=== PATIENT | male | born 1940 | race Caucasian/White ===

== ENCOUNTER 2018-01-06 13:24 | Outpatient (CLI) | payer MEDICARE, OTHER ==
--- NOTE | 2018-01-06 16:08 | XRAY Report ---
TWO VIEW RIGHT HUMERUS: 01/06/2018 CLINICAL INDICATION: Lateral epicondylitis. FINDINGS: Frontal and lateral views of the right humerus demonstrate no evidence of fracture. No radiopaque foreign body is seen in the soft tissues. IMPRESSION: NORMAL RIGHT HUMERUS. TD: 01/06/2018 16:07
--- NOTE | 2018-01-06 16:09 | XRAY Report ---
THREE VIEW RIGHT ELBOW: 01/06/2018 CLINICAL INDICATION: Lateral epicondylitis. FINDINGS: AP, lateral, oblique views of the right elbow demonstrate no evidence of fracture or dislocation. No effusion is evident. Mild degenerative changes are noted. No radiopaque foreign body is seen in the soft tissues. IMPRESSION: MILD OSTEOARTHRITIS. NO EVIDENCE OF FRACTURE. TD: 01/06/2018 16:08
== END 2018-01-06 13:25 | disposition home or self-care (01) ==
LOC: DI.N 13:24
PROVIDERS: ATTEND Internal Medicine
DX: M77.11 Lateral epicondylitis, right elbow (principal); M19.021 Primary osteoarthritis, right elbow

== ENCOUNTER 2018-09-28 21:27 | Outpatient (CLI) | payer MEDICARE, OTHER | END 2018-09-28 21:28 | disposition critical access hospital (66) | LOC: EMS 21:27 | PROVIDERS: ATTEND Surgery | DX: R10.9 Unspecified abdominal pain (principal) | CPT/HCPCS: A0425; A0427 ==

== ENCOUNTER 2018-09-28 21:52 | Emergency (ER) | payer MEDICARE, OTHER ==
[2018-09-28] MEDS ORDERED: ONDANSETRON 4 MG/2 ML VIAL IVP STA (22:07)
[2018-09-28] MEDS ORDERED: SODIUM CHLORIDE 0.9% 1,000 ML IV ONE (22:07)
--- NOTE | 2018-09-28 22:13 | ED Physician Documentation ---
PD HPI ABD PAIN - Stated complaint Stated Complaint: ABD PAIN - Chief complaint Chief Complaint: Abd Pain - History obtained from History obtained from: Patient - History of Present Illness Timing - onset: Today Timing - details: Gradual onset Severity Comments: moderate Quality: Cramping, Aching, Sharp Location: Periumbilical Radiation: Other (none) Worsened by: Palpation. No: Eating, Moving Associated symptoms: Nausea. No: Fever, Hematemesis, Diarrhea, Dizzy Similar symptoms before: Other (Similar to prior episodes in the past) Review of Systems Constitutional: denies: Fever, Chills Eyes: denies: Discharge Ears: denies: Ear pain Throat: denies: Sore throat Cardiac: denies: Chest pain / pressure Respiratory: denies: Dyspnea GI: reports: Abdominal Pain, Nausea : denies: Dysuria Skin: denies: Rash Musculoskeletal: denies: Neck pain Neurologic: denies: Generalized weakness PD PAST MEDICAL HISTORY - Past Medical History Cardiovascular: Hypertension, High cholesterol Respiratory: Emphysema Endocrine/Autoimmune: None GI: None : Kidney stones HEENT: Glaucoma, Chronic hearing loss Psych: Panic attacks Musculoskeletal: Osteoarthritis Derm: None - Past Surgical History Past Surgical History: Yes General: Colonoscopy - Present Medications Home Medications: Ambulatory Orders Medication Instructions Recorded Confirmed Aspirin [Aspir 81] 81 mg PO DAILY 11/24/14 09/28/18 Latanoprost 0.005% Ophth Drops 1 drops OPTH QPM 11/24/14 09/28/18 [Xalatan Ophth Drops] Lisinopril 15 mg PO DAILY 11/24/14 09/28/18 Naproxen Sodium [Aleve] 220 mg PO DAILY 11/24/14 09/28/18 Simvastatin 20 mg PO DAILY 11/24/14 09/28/18 Brimonidine Tartrate/Timolol 1 drop LEFTEYE DAILY 10/06/15 09/28/18 [Combigan Eye Drops] oxyCODONE/ACET 5/325 [Percocet 5 1 each PO Q4-6H PRN #15 tablet 10/06/15 09/28/18 mg/325 mg] - Allergies Allergies/Adverse Reactions: Allergies Allergy/AdvReac Type Severity Reaction Status Date / Time codeine AdvReac Itching Verified 09/28/18 21:58 - Social History Does the pt smoke?: No Smoking Status: Never smoker Does the pt drink ETOH?: Yes ETOH Use: Beer, Liquor Does the pt have substance abuse?: No PD ED PE NORMAL - General General: Alert and oriented X 3, No acute distress - HEENT HEENT: Atraumatic, PERRL, EOMI, Ears normal - Neck Neck: Supple, no meningeal sign - Cardiac Cardiac: RRR, Strong equal pulses - Respiratory Respiratory: No respiratory distress, Clear bilaterally - Abdomen Abdomen: Soft, Non distended. No: Non tender (Mid abdominal pain, no rebound or peritoneal signs) - Back Back: No CVA TTP - Derm Derm: Normal color - Extremities Extremities: No deformity, No edema - Neuro Neuro: Alert and oriented X 3, Normal speech - Psych Psych: Normal affect Results - Vitals Vitals: Vital Signs - 24 hr 09/28/18 09/28/18 21:56 23:49 Temperature 36.0 C L Heart Rate 74 91 Respiratory 18 15 Rate Blood Pressure 159/89 H 158/87 H O2 Saturation 98 95 Oxygen O2 Source Room air - Labs Labs: Laboratory Tests 09/28/18 09/28/18 09/28/18 22:25 22:25 23:50 WBC 7.3 RBC 4.51 L Hgb 14.2 Hct 42.8 MCV 94.9 H MCH 31.5 H MCHC 33.2 RDW 12.9 Plt Count 177 MPV 7.5 Neut # (Auto) 5.6 Lymph # (Auto) 1.1 L [place] # (Auto) 0.4 Eos # (Auto) 0.1 Baso # (Auto) 0.0 Absolute Nucleated RBC 0.00 Nucleated RBC % 0.0 Sodium 138 Potassium 4.0 Chloride 107 Carbon Dioxide 23 Anion Gap 8.0 BUN 28 H Creatinine 1.1 Estimated GFR (MDRD) 65 L Glucose 142 H Calcium 9.3 Total Bilirubin 0.7 AST 21 ALT 18 Alkaline Phosphatase 78 Total Protein 7.0 Albumin 3.8 Globulin 3.2 Albumin/Globulin Ratio 1.2 Lipase 30 Urine Color YELLOW Urine Clarity CLEAR Urine pH 7.5 Ur Specific [place] 1.020 Urine Protein TRACE Urine Glucose (UA) NEGATIVE Urine Ketones NEGATIVE Urine Occult Blood NEGATIVE Urine Nitrite NEGATIVE Urine Bilirubin NEGATIVE Urine Urobilinogen 0.2 (NORMAL) Ur Leukocyte Esterase NEGATIVE Ur Microscopic Review NOT INDICATED Urine Culture Comments NOT INDICATED - Rads (name of study) CT abd/pelvis Radiology: Final report received, See rad report (1. Right middle lobe 9 mm pulmonary nodule, unchanged from 2016 most consistent with benign. Mild centrilobular emphysema. 2. Cholelithiasis. 3. Normal appendix. Left-sided colonic diverticulosis without evidence for acute diverticulitis. No acute findings are seen. . ) PD MEDICAL DECISION MAKING - ED course ED course: Reevaluation the patient resting comfortably and his symptoms appear to be under control. The patient has no acute findings on his workup that would necessitate admission to the hospital, acute surgical consultation or transfer to another Medical Center. Presently, the patient appears appropriate for discharge and ongoing outpatient management. I discussed with him the findings on CT scan. I discussed warning signs and recommended returning for any worsening or any concerns. Departure - Departure Disposition: 01 Home, Self Care Clinical Impression: Pulmonary nodule Abdominal pain Qualifiers: Abdominal location: generalized Qualified Code(s): R10.84 - Generalized abdominal pain Cholelithiasis Qualifiers: Cholelithiasis location: gallbladder Cholecystitis presence: without cholecystitis Biliary obstruction: without biliary obstruction Qualified Code(s): K80.20 - Calculus of gallbladder without cholecystitis without obstruction Condition: Good Instructions: Abdominal Pain Follow-Up: Gayle Munoz MD [Primary Care Provider] - Within 1 week (Please ask your primary care about an outpatient ultrasound of your gallbladder and possibly referral to surgery if you develop symptoms of biliary colic) Comments: Please return to the emergency department for any worsening or any concerns
[2018-09-28 22:33] LABS: BASOPHILS % (AUTO) 0.6 %; EOSINOPHILS # (AUTO) 0.1 10^3/uL (0.0-0.7); EOSINOPHILS % (AUTO) 1.3 %; HGB - HEMOGLOBIN 14.2 g/dL (14.0-18.0); LYMPHOCYTES # (AUTO) 1.1 10^3/uL (1.5-3.5); LYMPHOCYTES % (AUTO) 15.5 %; MEAN CORPUSCULAR HEMOGLOBIN 31.5 pg (27.0-31.0); MEAN CORPUSCULAR HGB CONC 33.2 g/dL (32.0-36.0); MEAN CORPUSCULAR VOLUME 94.9 fL (80.0-94.0); MEAN PLATELET VOLUME 7.5 fL (7.4-11.4); MONOCYTES # (AUTO) 0.4 10^3/uL (0.0-1.0); NEUTROPHILS # (AUTO) 5.6 10^3/uL (1.5-6.6); NEUTROPHILS % (AUTO) 76.6 %; PLT - PLATELET COUNT 177 10^3/uL (130-450); RED BLOOD COUNT 4.51 10^6/uL (4.70-6.10); RED CELL DISTRIBUTION WIDTH 12.9 % (12.0-15.0); WHITE BLOOD COUNT 7.3 x10^3/uL (4.8-10.8)
[2018-09-28 22:50] LABS: ALBUMIN 3.8 g/dL (3.2-5.5); ALBUMIN/GLOBULIN RATIO 1.2 (1.0-2.2); BILIRUBIN,TOTAL 0.7 mg/dL (0.2-1.0); CALCIUM 9.3 mg/dL (8.5-10.3); CREATININE 1.1 mg/dL (0.6-1.2)
[2018-09-28] MEDS ORDERED: IOVERSOL 320 100 ML VIAL IVP ONE ×2 (22:55→23:18)
[2018-09-28 23:52] LABS: BILIRUBIN,URINE NEGATIVE (NEGATIVE); GLUCOSE, URINE (UA) NEGATIVE (NEGATIVE); KETONES,URINE (UA) NEGATIVE (NEGATIVE); LEUKOCYTE ESTERASE, URINE NEGATIVE (NEGATIVE); NITRITE,URINE NEGATIVE (NEGATIVE); OCCULT BLOOD,URINE NEGATIVE (NEGATIVE); PH,URINE 7.5 PH (5.0-7.5); PROTEIN,URINE TRACE mg/dL (NEGATIVE); UROBILINOGEN,URINE 0.2 (NORMAL) E.U./dL (NORMAL)
[2018-09-28 23:53] LABS: CLARITY,URINE CLEAR (CLEAR)
--- NOTE | 2018-09-29 00:05 | CT Report ---
Reason: abdominal pain Procedure Date: 09/28/2018 Accession Number: [id number] / [id number] Procedure: CT - Abdomen/Pelvis W/ CPT Code: FULL RESULT: EXAM: CT ABDOMEN AND PELVIS EXAM DATE: 09/28/2018 11:30 PM. CLINICAL HISTORY: Abdominal pain. COMPARISONS: ABDOMEN/PELVIS W/O 10/06/2015 3:39 AM. TECHNIQUE: Routine helical CT imaging was performed through the abdomen and pelvis. IV contrast: OPTIRAY 320 100mL. Enteric contrast: No. Reconstructions: Coronal and sagittal. In accordance with CT protocol optimization, one or more of the following dose reduction techniques were utilized for this exam: automated exposure control, adjustment of mA and/or KV based on patient size, or use of iterative reconstructive technique. FINDINGS: Lung Bases: Right middle lobe 9 mm pulmonary nodule, unchanged from 2016 most consistent with benign. Mild centrilobular emphysema. Mild bibasilar atelectasis or scarring. Coronary artery calcification. Liver: Normal. No masses. Gallbladder/Bile Ducts: Small calcified gallstones. No bile duct dilatation. Spleen: Normal. Pancreas: Normal. Adrenal Glands: Normal. Kidneys: Right lateral exophytic renal cyst measures 2.9 cm, mildly decreased. Right anterior mid renal cyst measuring 1.9 cm. Right posterior mid small calcification at the parenchyma. No hydronephrosis. Peritoneal Cavity/Bowel: Normal appendix. Sigmoid anastomosis. Mild descending and moderate sigmoid colon diverticulosis. Ventral hernia repair. No evidence for bowel obstruction. No acute bowel findings are seen. No free fluid or free air. Pelvic Organs: The bladder is decompressed. Remaining pelvic organs appear unremarkable. Vasculature: No acute findings. Bones: No acute bone findings. IMPRESSION: 1. Right middle lobe 9 mm pulmonary nodule, unchanged from 2016 most consistent with benign. Mild centrilobular emphysema. 2. Cholelithiasis. 3. Normal appendix. Left-sided colonic diverticulosis without evidence for acute diverticulitis. No acute findings are seen. RADIA
[2018-09-29 00:47] VITALS: BP 164/101
== END 2018-09-29 00:45 | disposition home or self-care (01) ==
LOC: EDUNIT# → ED 21:52
DX: R91.1 Solitary pulmonary nodule (principal); R10.84 Generalized abdominal pain; K80.20 Calculus of gallbladder without cholecystitis without obstruction; I10 Essential (primary) hypertension; E78.00 Pure hypercholesterolemia, unspecified; Z79.82 Long term (current) use of aspirin
CPT/HCPCS: 36415; 74177; 80053; 81003; 83690; 85025; 96361; 96374; 99283; Q9967; 81001; 87086

== ENCOUNTER 2019-07-01 19:20 | Outpatient (CLI) | payer MEDICARE, OTHER | END 2019-07-01 19:21 | disposition critical access hospital (66) | LOC: EMS 19:20 | PROVIDERS: ATTEND Surgery | DX: R10.9 Unspecified abdominal pain (principal) | CPT/HCPCS: A0425; A0429 ==

== ENCOUNTER 2019-07-01 19:44 | Emergency (ER) | payer MEDICARE, OTHER ==
[2019-07-01 20:23] LABS: BASOPHILS % (AUTO) 0.4 %; EOSINOPHILS # (AUTO) 0.1 10^3/uL (0.0-0.7); EOSINOPHILS % (AUTO) 1.2 %; HGB - HEMOGLOBIN 13.7 g/dL (14.0-18.0); LYMPHOCYTES # (AUTO) 1.1 10^3/uL (1.5-3.5); LYMPHOCYTES % (AUTO) 23.3 %; MEAN CORPUSCULAR HEMOGLOBIN 32.8 pg (27.0-31.0); MEAN CORPUSCULAR HGB CONC 33.9 g/dL (32.0-36.0); MEAN CORPUSCULAR VOLUME 96.7 fL (80.0-94.0); MEAN PLATELET VOLUME 9.1 fL (7.4-11.4); MONOCYTES # (AUTO) 0.5 10^3/uL (0.0-1.0); MONOCYTES % (AUTO) 10.5 %; NEUTROPHILS # (AUTO) 3.1 10^3/uL (1.5-6.6); PLT - PLATELET COUNT 158 10^3/uL (130-450); RED BLOOD COUNT 4.18 10^6/uL (4.70-6.10); RED CELL DISTRIBUTION WIDTH 12.5 % (12.0-15.0); WHITE BLOOD COUNT 4.9 x10^3/uL (4.8-10.8)
[2019-07-01 20:35] LABS: INR 1.2 (0.8-1.2)
[2019-07-01 20:44] LABS: ALBUMIN 3.8 g/dL (3.2-5.5); ALBUMIN/GLOBULIN RATIO 1.3 (1.0-2.2); CREATININE 0.9 mg/dL (0.6-1.2); TOTAL PROTEIN 6.8 g/dL (6.7-8.2)
--- NOTE | 2019-07-01 20:50 | ED Physician Documentation ---
PD HPI ABD PAIN - Stated complaint Stated Complaint: ABD PAIN WITH DISTENTION - Chief complaint Chief Complaint: Abd Pain - History obtained from History obtained from: Patient, Family - History of Present Illness Timing - onset: Enter time (1599), Today Timing - duration: Hours Timing - details: Abrupt onset, Now resolved Quality: Sharp, Pain Location: Epigastric Improved by: Other (gas) Associated symptoms: Constipation. No: Fever, Nausea, Vomiting, Hematemesis, Diarrhea, Melena, Hematochezia, Dysuria, Hematuria, Chest pain, Dizzy, Near syncope / syncope, Loss of appetite, Weight loss Similar symptoms before: No diagnosis, Work up / diagnostics (had CT with gallstones in September) Recently seen: Not recently seen - Additional information Additional information: 78-year-old male with a history of a colonic abscess status post colon resection 9 years ago and ventral hernia has developed episodes of abdominal pain bloating and gas that have resolved. He has had an episode similar to this back in September and this resolved. At that time he had CT scan showing gallstones. The patient has not had his gallbladder out.Today he had pain starting about 4:00 in the afternoon and this eventually worsened to where he felt like it was going to double him over and then on the way to the hospital his pain resolved. He is now comfortable. Review of Systems Constitutional: denies: Fever Eyes: denies: Decreased vision Ears: denies: Ear pain Nose: denies: Rhinorrhea / runny nose, Congestion Throat: denies: Sore throat Cardiac: denies: Chest pain / pressure Respiratory: denies: Dyspnea, Cough GI: reports: Abdominal Pain, Abdominal Swelling, Nausea. denies: Vomiting, Constipation, Diarrhea : denies: Dysuria, Frequency Skin: denies: Rash Musculoskeletal: denies: Neck pain Neurologic: denies: Generalized weakness, Focal weakness, Numbness PD PAST MEDICAL HISTORY - Past Medical History Past Medical History: Yes Cardiovascular: Hypertension, High cholesterol Respiratory: Emphysema Endocrine/Autoimmune: None GI: None : Kidney stones HEENT: Glaucoma, Chronic hearing loss Psych: Panic attacks Musculoskeletal: Osteoarthritis Derm: None - Past Surgical History Past Surgical History: Yes General: Colonoscopy - Present Medications Home Medications: Ambulatory Orders Medication Instructions Recorded Confirmed Aspirin [Aspir 81] 81 mg PO DAILY 11/24/14 09/28/18 Latanoprost 0.005% Ophth Drops 1 drops OPTH QPM 11/24/14 09/28/18 [Xalatan Ophth Drops] Lisinopril 15 mg PO DAILY 11/24/14 09/28/18 Naproxen Sodium [Aleve] 220 mg PO DAILY 11/24/14 09/28/18 Simvastatin 20 mg PO DAILY 11/24/14 09/28/18 Brimonidine Tartrate/Timolol 1 drop LEFTEYE DAILY 10/06/15 09/28/18 [Combigan Eye Drops] oxyCODONE/ACET 5/325 [Percocet 5 1 each PO Q4-6H PRN #15 tablet 10/06/15 09/28/18 mg/325 mg] - Allergies Allergies/Adverse Reactions: Allergies Allergy/AdvReac Type Severity Reaction Status Date / Time codeine AdvReac Itching Verified 07/01/19 19:50 - Social History Does the pt smoke?: No Smoking Status: Never smoker Does the pt drink ETOH?: Yes Does the pt have substance abuse?: No PD ED PE NORMAL - Vitals Vital signs reviewed: Yes (hypertensive) - General General: Alert and oriented X 3, No acute distress, Well developed/nourished - HEENT HEENT: Atraumatic, PERRL, EOMI, Other (dry mucous membranes) - Neck Neck: Supple, no meningeal sign, No bony TTP - Cardiac Cardiac: RRR, No murmur - Respiratory Respiratory: No respiratory distress, Clear bilaterally - Abdomen Abdomen: Normal bowel sounds, Soft, Non tender, Non distended, No organomegaly, Other (mild epigastric tenderness without garding or rebound) - Back Back: No CVA TTP, No spinal TTP - Derm Derm: Normal color, Warm and dry, No rash - Extremities Extremities: No deformity, No tenderness to palpate, Normal ROM s pain, No edema, No calf tenderness / cord - Neuro Neuro: Alert and oriented X 3, glass curvature gauger 2-12 intact, No motor deficit, Normal speech Eye Opening: Spontaneous Motor: Obeys Commands Verbal: Oriented GCS Score: 15 - Psych Psych: Normal mood, Normal affect Results - Vitals Vitals: Vital Signs - 24 hr 07/01/19 07/01/19 07/01/19 19:50 21:57 23:12 Temperature 36.5 C 37.2 C 36.5 C Heart Rate 61 78 68 Respiratory 16 12 20 Rate Blood Pressure 168/87 H 150/93 H 148/77 H O2 Saturation 97 96 96 Oxygen O2 Source Room air - Labs Labs: Laboratory Tests 07/01/19 07/01/19 07/01/19 20:20 20:20 20:20 WBC 4.9 RBC 4.18 L Hgb 13.7 L Hct 40.4 L MCV 96.7 H MCH 32.8 H MCHC 33.9 RDW 12.5 Plt Count 158 MPV 9.1 Neut # (Auto) 3.1 Lymph # (Auto) 1.1 L [place] # (Auto) 0.5 Eos # (Auto) 0.1 Baso # (Auto) 0.0 Absolute Nucleated RBC 0.00 Nucleated RBC % 0.0 PT 13.0 H INR 1.2 Sodium 141 Potassium 4.2 Chloride 109 Carbon Dioxide 25 Anion Gap 7.0 BUN 25 H Creatinine 0.9 Estimated GFR (MDRD) 82 L Glucose 107 H Lactic Acid Calcium 9.0 Total Bilirubin 2.0 H AST 613 H ALT 405 H Alkaline Phosphatase 123 H Total Protein 6.8 Albumin 3.8 Globulin 3.0 Albumin/Globulin Ratio 1.3 Lipase 30 07/01/19 20:20 WBC RBC Hgb Hct MCV MCH MCHC RDW Plt Count MPV Neut # (Auto) Lymph # (Auto) [place] # (Auto) Eos # (Auto) Baso # (Auto) Absolute Nucleated RBC Nucleated RBC % PT INR Sodium Potassium Chloride Carbon Dioxide Anion Gap BUN Creatinine Estimated GFR (MDRD) Glucose Lactic Acid 0.9 Calcium Total Bilirubin AST ALT Alkaline Phosphatase Total Protein Albumin Globulin Albumin/Globulin Ratio Lipase - Rads (name of study) CT ab/pel with Radiology: Prelim report reviewed (Impression: 1. Circumferential wall thickening of the gastric antrum. Correlate clinically for antral gastritis. 2 Colonic diverticulosis. No diverticulitis. 3 Gallstones. 4 Other chronic findings as detailed above.), EMP read indepedently, See rad report PD MEDICAL DECISION MAKING - ED course Complexity details: reviewed old records, reviewed results, re-evaluated patient, considered differential, d/w patient, d/w family, d/w service delivery consultant (Dr. Johnson surgery here will follow the patient with repeat labs on Saturday07-03-2019. Recommends he follow up in the ED for recurrance of pain . ) ED course: 78-year-old male with acute abdominal pain today that is resolved prior to coming to the emergency department has had episodes similar to this not as extensive over the past 10 months and he has had one episode in September that he was seen here in the emergency department for and had CT scanning of the abdomen done. On his presentation today he has had resolution prior to coming to the emergency department and has only minimal epigastric pain. A CT scan of the abdomen/pelvis was undertaken to further delineate the possibility of obstruction. The patient has had prior bowel obstruction. This study was fairly unremarkable with exception of some small stones in the gallbladder and no specific abnormality to the liver. His laboratory results indicated acute obstruction and the surgeon was contacted in the case. My thoughts on the patient presentation is that he had a common duct stone but is likely now passed and the expectation would be that his laboratory work showing elevated bilirubin AST ALT and alkaline phosphatase would return to normal. I suspect the patient needs to have his gallbladder taken out. I was able to contact the surgeon Dr. Ortega and discussed the case with her and she graciously agreed to see the patient in her office in 2 days time and obtain laboratory results prior to the visit. The expectation from both of us was that it was likely he has passed the stone. I was able to share this with the patient and have asked him to return to the emergency department should he have recurrence of his pain. In the emergency department the patient did have some residual epigastric pain and this was resolved with use of a GI cocktail. Departure - Departure Disposition: 01 Home, Self Care Clinical Impression: Cholelithiasis Qualifiers: Cholelithiasis location: gallbladder and bile duct Cholecystitis presence: without cholecystitis Biliary obstruction: with biliary obstruction Qualified Code(s): K80.71 - Calculus of gallbladder and bile duct without cholecystitis with obstruction Instructions: ED Gallstone W Biliary Colic Follow-Up: Gayle Munoz MD [Primary Care Provider] - Mark Johnson MD [Provider Admit Priv/Credential] - Comments: Today your laboratory studies indicate you have had some biliary obstruction. Our expectation is that these laboratory studies will return to normal and you will need to have your gallbladder out. If you have worsening of your pain return to the emergency department. Call Dr. Johnson's office tomorrow morning with the expectation that she will be able to see you on Saturday and you will need to have blood work done prior to the visit. Discharge Date/Time: 07/01/19 23:15
[2019-07-01] MEDS ORDERED: IOVERSOL 320 100 ML VIAL IVP ONE ×2 (21:05→21:19)
--- NOTE | 2019-07-01 21:45 | CT Report ---
Reason: gas, bloating and pain epigastric Procedure Date: 07/01/2019 Accession Number: [id number] / [id number] Procedure: CT - Abdomen/Pelvis W CPT Code: FULL RESULT: EXAM: CT ABDOMEN AND PELVIS EXAM DATE: 07/01/2019 09:11 PM. CLINICAL HISTORY: Gas, bloating and pain epigastric. COMPARISONS: ABDOMEN/PELVIS W/ 09/28/2018 11:08 PM ABDOMEN/PELVIS W/O 10/06/2015 3:39 AM. TECHNIQUE: Routine helical CT imaging was performed through the abdomen and pelvis. IV contrast: 100 cc Optiray 320. Enteric contrast: No. Reconstructions: Coronal and sagittal. In accordance with CT protocol optimization, one or more of the following dose reduction techniques were utilized for this exam: automated exposure control, adjustment of mA and/or KV based on patient size, or use of iterative reconstructive technique. FINDINGS: Imaged chest: Coronary artery disease and mild atherosclerosis of the thoracic aorta. Unchanged 9 mm pulmonary nodule within the right middle lobe, likely benign given a year stability. Unchanged enlarged intrapulmonary lymph node within the right major fissure. Again mild emphysema. Liver: Unremarkable. Gallbladder: Gallstones in gallbladder. No gallbladder wall thickening or pericholecystic fluid. Biliary: Unremarkable. Pancreas: Unremarkable. Spleen: Unremarkable. Adrenal glands: Unremarkable. Kidneys: Renal cortical scarring. The kidneys demonstrate a few scattered low-density foci, some of which represent cysts, others are too small to accurately characterize and indeterminate but statistically likely to represent tiny cysts. Urinary bladder: Unremarkable. Reproductive organs: Unremarkable. Bowel: Status post at least partial sigmoidectomy with colorectal anastomosis. Sigmoid and descending colonic diverticulosis without obvious evidence of diverticulitis. Stomach: Circumferential wall thickening of the gastric antrum. Appendix: Unremarkable. Miscellaneous: No free fluid. No extraluminal gas. Aorta: Moderate aortic atherosclerosis. Normal in caliber. Lymph nodes: No pathologically enlarged lymph nodes identified. Bones: No acute fracture. No suspicious osseous lesions. Sidewalls: Diastases of the rectus abdominis muscle status post hernia repair with mesh. IMPRESSION: 1. Circumferential wall thickening of the gastric antrum. Correlate clinically for antral gastritis. 2. Colonic diverticulosis. No diverticulitis. 3. Gallstones. 4. Other chronic findings detailed above. RAD[facility]
[2019-07-01] MEDS ORDERED: MAG HYDROX/AL HYDROX/SIMETH 30 ML UDC PO STA (22:06)
[2019-07-01] MEDS ORDERED: LIDOCAINE VISCOUS 2% 15 ML UDC MM STA (22:07)
[2019-07-01 23:12] VITALS: BP 148/77
== END 2019-07-01 23:15 | disposition home or self-care (01) ==
LOC: EDUNIT# → ED 19:44
DX: K80.71 Calculus of gallbladder and bile duct without cholecystitis with obstruction (principal); K57.30 Diverticulosis of large intestine without perforation or abscess without bleeding; Z87.19 Personal history of other diseases of the digestive system; Z90.49 Acquired absence of other specified parts of digestive tract; I10 Essential (primary) hypertension; Z79.82 Long term (current) use of aspirin
CPT/HCPCS: 36415; 74177; 80053; 83605; 83690; 85025; 85610; 99284; A9270; Q9967

== ENCOUNTER 2019-07-02 10:47 | Outpatient (CLI) | payer MEDICARE, OTHER ==
[2019-07-02 11:05] LABS: BASOPHILS % (AUTO) 0.5 %; HGB - HEMOGLOBIN 14.6 g/dL (14.0-18.0); LYMPHOCYTES # (AUTO) 0.9 10^3/uL (1.5-3.5); LYMPHOCYTES % (AUTO) 22.6 %; MEAN CORPUSCULAR HEMOGLOBIN 31.5 pg (27.0-31.0); MEAN CORPUSCULAR HGB CONC 32.9 g/dL (32.0-36.0); MEAN CORPUSCULAR VOLUME 95.9 fL (80.0-94.0); MEAN PLATELET VOLUME 9.5 fL (7.4-11.4); MONOCYTES # (AUTO) 0.4 10^3/uL (0.0-1.0); MONOCYTES % (AUTO) 9.8 %; NEUTROPHILS # (AUTO) 2.6 10^3/uL (1.5-6.6); NEUTROPHILS % (AUTO) 65.6 %; PLT - PLATELET COUNT 175 10^3/uL (130-450); RED BLOOD COUNT 4.63 10^6/uL (4.70-6.10); RED CELL DISTRIBUTION WIDTH 12.7 % (12.0-15.0); WHITE BLOOD COUNT 3.9 x10^3/uL (4.8-10.8)
[2019-07-02 11:24] LABS: ALBUMIN 4.2 g/dL (3.2-5.5); BILIRUBIN,DIRECT 3.6 mg/dL (0.1-0.5); BILIRUBIN,TOTAL 5.7 mg/dL (0.2-1.0); CALCIUM 9.5 mg/dL (8.5-10.3); CREATININE 0.9 mg/dL (0.6-1.2); TOTAL PROTEIN 7.3 g/dL (6.7-8.2)
== END 2019-07-02 10:48 | disposition home or self-care (01) ==
LOC: LAB 10:47
PROVIDERS: ATTEND Surgery
DX: K80.71 Calculus of gallbladder and bile duct without cholecystitis with obstruction (principal)
CPT/HCPCS: 36415; 80048; 80076; 85025

== ENCOUNTER 2019-07-03 11:23 | Outpatient (CLI) | payer MEDICARE, OTHER ==
[2019-07-04 10:33] LABS: HEPATITIS B SURFACE ANTIGEN NON-REACTIVE (NON-REACTIVE)
[2019-07-04 10:46] LABS: HEPATITIS A IGM NON-REACTIVE (NON-REACTIVE); HEPATITIS B SURFACE ANTIGEN NON-REACTIVE (NON-REACTIVE); HEPATITIS C ANTIBODY NON-REACTIVE (NON-REACTIVE)
== END 2019-07-03 11:24 | disposition home or self-care (01) ==
LOC: LAB 11:23
PROVIDERS: ATTEND Surgery
DX: K75.9 Inflammatory liver disease, unspecified (principal)
CPT/HCPCS: 36415; 80074; 81599; 83516; 84703; 86255; 86317; 86803; 87340

== ENCOUNTER 2019-07-13 15:15 | Outpatient (CLI) | payer MEDICARE, OTHER ==
[2019-07-13 15:59] LABS: ALBUMIN 3.9 g/dL (3.2-5.5); BILIRUBIN,DIRECT 0.1 mg/dL (0.1-0.5); BILIRUBIN,TOTAL 0.6 mg/dL (0.2-1.0); TOTAL PROTEIN 6.8 g/dL (6.7-8.2)
== END 2019-07-13 15:16 | disposition home or self-care (01) ==
LOC: LAB 15:15
PROVIDERS: ATTEND Physician Assistant
DX: R94.5 Abnormal results of liver function studies (principal)
CPT/HCPCS: 36415; 80076

== ENCOUNTER 2019-07-22 14:22 | Emergency (ER) | payer MEDICARE, OTHER ==
[2019-07-22 15:04] LABS: BASOPHILS % (AUTO) 0.2 %; EOSINOPHILS # (AUTO) 0.1 10^3/uL (0.0-0.7); EOSINOPHILS % (AUTO) 1.7 %; HGB - HEMOGLOBIN 14.3 g/dL (14.0-18.0); LYMPHOCYTES # (AUTO) 1.4 10^3/uL (1.5-3.5); LYMPHOCYTES % (AUTO) 29.2 %; MEAN CORPUSCULAR HEMOGLOBIN 31.6 pg (27.0-31.0); MEAN CORPUSCULAR HGB CONC 33.3 g/dL (32.0-36.0); MEAN CORPUSCULAR VOLUME 94.7 fL (80.0-94.0); MONOCYTES # (AUTO) 0.4 10^3/uL (0.0-1.0); MONOCYTES % (AUTO) 8.1 %; NEUTROPHILS # (AUTO) 2.9 10^3/uL (1.5-6.6); NEUTROPHILS % (AUTO) 60.6 %; PLT - PLATELET COUNT 183 10^3/uL (130-450); RED BLOOD COUNT 4.53 10^6/uL (4.70-6.10); RED CELL DISTRIBUTION WIDTH 12.3 % (12.0-15.0); WHITE BLOOD COUNT 4.8 x10^3/uL (4.8-10.8)
[2019-07-22 15:18] LABS: ALBUMIN 4.2 g/dL (3.2-5.5); ALBUMIN/GLOBULIN RATIO 1.3 (1.0-2.2); BILIRUBIN,TOTAL 1.7 mg/dL (0.2-1.0); CALCIUM 9.5 mg/dL (8.5-10.3); TOTAL PROTEIN 7.4 g/dL (6.7-8.2)
[2019-07-22 15:45] LABS: GLUCOSE, URINE (UA) NEGATIVE (NEGATIVE); KETONES,URINE (UA) NEGATIVE (NEGATIVE); LEUKOCYTE ESTERASE, URINE NEGATIVE (NEGATIVE); NITRITE,URINE POSITIVE (NEGATIVE); OCCULT BLOOD,URINE NEGATIVE (NEGATIVE); PH,URINE 5.5 PH (5.0-7.5); PROTEIN,URINE TRACE mg/dL (NEGATIVE); UROBILINOGEN,URINE 1 (NORMAL) E.U./dL (NORMAL)
[2019-07-22 16:00] LABS: BACTERIA,URINE None Seen /HPF (None Seen); BILIRUBIN,URINE NEGATIVE (NEGATIVE); CLARITY,URINE CLEAR (CLEAR); CRYSTALS,URINE 26-50 Ca Oxalate /LPF; ICTOTEST,URINE NEGATIVE; RBC,URINE 0-5 /HPF (0-5); SQUAMOUS EPITHELIAL CELL,UR RARE Squamous (<= Few)
--- NOTE | 2019-07-22 17:38 | ED Physician Documentation ---
PD HPI MALE - Stated complaint Stated Complaint: MALE - Chief complaint Chief Complaint: Abd Pain - History obtained from History obtained from: Patient - History of Present Illness Timing - onset: How many weeks ago Timing - duration: Weeks Timing - details: Still present, Other (then today noticed his urine was orange in color) Severity Comments: mild Associated symptoms: Abdominal pain, Back pain. No: Dysuria, Urinary frequency, Unable to urinate, Discharge, Testiclar pain, Indwelling catheter, Vela problem Similar symptoms before: Diagnosis (had a CT scan done a few weeks ago and was diagnosed with gallstones and signs of gastritis), Work up / diagnostics Recently seen: Emergency Dept - Treatment prior to arrival Treatment prior to arrival: none - Additional information Additional information: Pt has been told at a prior ED visit that he has gallstones and elevated liver enzymes. At that time he had a workup for hepatitis which he states was negative. He also was noted on a CT scan at that time to have at thickened gastric wall and thus is schedule for an endoscopy. On a follow up test of his LFts they improved. He has continued to have some diffuse abdominal pain radiating to his back. Denies nausea or vomiting. Denies urinary symptoms. Denies dysuria or frequency or incontinence. Came to the ED today for orange looking urine which was new. Review of Systems Ten Systems: 10 systems reviewed and negative Constitutional: denies: Fever Cardiac: denies: Chest pain / pressure, Palpitations, Pedal edema, Calf pain Respiratory: denies: Dyspnea GI: reports: Abdominal Pain. denies: Nausea, Vomiting, Constipation, Diarrhea, Hematemesis, Bloody / black stool Skin: reports: Reviewed and negative Musculoskeletal: reports: Back pain Neurologic: reports: Reviewed and negative. denies: Generalized weakness, Focal weakness, Numbness Psychiatric: reports: Reviewed and negative Endocrine: reports: Reviewed and negative Immunocompromised: reports: Reviewed and negative PD PAST MEDICAL HISTORY - Past Medical History Cardiovascular: Hypertension, High cholesterol Respiratory: Emphysema Endocrine/Autoimmune: None GI: None : Kidney stones HEENT: Glaucoma, Chronic hearing loss Psych: Panic attacks Musculoskeletal: Osteoarthritis Derm: None - Past Surgical History Past Surgical History: Yes General: Colonoscopy - Present Medications Home Medications: Ambulatory Orders Medication Instructions Recorded Confirmed Aspirin [Aspir 81] 81 mg PO DAILY 11/24/14 09/28/18 Latanoprost 0.005% Ophth Drops 1 drops OPTH QPM 11/24/14 09/28/18 [Xalatan Ophth Drops] Lisinopril 15 mg PO DAILY 11/24/14 09/28/18 Naproxen Sodium [Aleve] 220 mg PO DAILY 11/24/14 09/28/18 Simvastatin 20 mg PO DAILY 11/24/14 09/28/18 Brimonidine Tartrate/Timolol 1 drop LEFTEYE DAILY 10/06/15 09/28/18 [Combigan Eye Drops] oxyCODONE/ACET 5/325 [Percocet 5 1 each PO Q4-6H PRN #15 tablet 10/06/15 09/28/18 mg/325 mg] - Allergies Allergies/Adverse Reactions: Allergies Allergy/AdvReac Type Severity Reaction Status Date / Time codeine AdvReac Itching Verified 07/22/19 14:27 - Social History Does the pt smoke?: No Smoking Status: Never smoker Does the pt drink ETOH?: Yes Does the pt have substance abuse?: No PD ED PE NORMAL - Vitals Vital signs reviewed: Yes - General General: Alert and oriented X 3, No acute distress, Well developed/nourished - HEENT HEENT: Atraumatic, Pharynx benign - Neck Neck: Supple, no meningeal sign - Cardiac Cardiac: RRR, No murmur, No gallop, No rub - Respiratory Respiratory: No respiratory distress, Clear bilaterally - Abdomen Abdomen: Soft, Non tender, Non distended, Other (negative Le's sign) - Male Male : Deferred - Rectal Rectal: Deferred - Derm Derm: Normal color, Warm and dry, No rash - Extremities Extremities: No deformity, No edema - Neuro Neuro: Alert and oriented X 3 Eye Opening: Spontaneous Motor: Obeys Commands Verbal: Oriented GCS Score: 15 - Psych Psych: Normal mood, Normal affect Results - Vitals Vitals: Vital Signs - 24 hr 07/22/19 07/22/19 07/22/19 14:29 15:43 17:43 Temperature 37.2 C Heart Rate 96 74 77 Respiratory 17 18 18 Rate Blood Pressure 146/67 H 155/91 H 136/71 H O2 Saturation 97 97 97 Oxygen O2 Source Room air - Labs Labs: Laboratory Tests 07/22/19 07/22/19 07/22/19 14:48 14:48 15:00 WBC 4.8 RBC 4.53 L Hgb 14.3 Hct 42.9 MCV 94.7 H MCH 31.6 H MCHC 33.3 RDW 12.3 Plt Count 183 MPV 10.0 Neut # (Auto) 2.9 Lymph # (Auto) 1.4 L [place] # (Auto) 0.4 Eos # (Auto) 0.1 Baso # (Auto) 0.0 Absolute Nucleated RBC 0.00 Nucleated RBC % 0.0 Sodium 139 Potassium 3.9 Chloride 107 Carbon Dioxide 23 Anion Gap 9.0 BUN 28 H Creatinine 1.0 Estimated GFR (MDRD) 72 L Glucose 111 H Calcium 9.5 Total Bilirubin 1.7 H AST 222 H ALT 293 H Alkaline Phosphatase 188 H Total Protein 7.4 Albumin 4.2 Globulin 3.2 Albumin/Globulin Ratio 1.3 Lipase 139 H Urine Color DARK YELLOW Urine Clarity CLEAR Urine pH 5.5 Ur Specific [place] 1.025 Urine Protein TRACE Urine Glucose (UA) NEGATIVE Urine Ketones NEGATIVE Urine Occult Blood NEGATIVE Urine Nitrite POSITIVE H Urine Bilirubin NEGATIVE Urine Urobilinogen 1 (NORMAL) Ur Leukocyte Esterase NEGATIVE Urine RBC 0-5 Urine WBC 6-10 H Ur Squamous Epith Cells RARE Squamous Urine Crystals 26-50 Ca Oxalate Urine Bacteria None Seen Ur Microscopic Review INDICATED Urine Culture Comments INDICATED - Rads (name of study) US abdomen Radiology: Final report received, See rad report (cholelithiasis ) PD MEDICAL DECISION MAKING - ED course Complexity details: reviewed old records, reviewed results, re-evaluated patient, considered differential, d/w patient, d/w family ED course: ddx- cholelithiasis, cholecystitis, choledocholithiasis, pancreatitis, hepatitis, UTI, kidney stones. 78 y/o M with hx of gallstones noted on prior CT now today with orange colored urine and elevated bilirubin, LFts are all up again since his last visit. He has no evidence of cholecystitis. He was told he cannot get evaluated by surgery for his gallbladder until receiving an endoscopy for a finding of gastric wall thickening on his CT but he is relatively asymptomatic with this regard. Consulted Dr. Johnson but callback is still pending. Signed out pt to Dr. Grey with surgery consultation pending/
--- NOTE | 2019-07-22 17:57 | Ultrasound Report ---
Reason: RUQ US, elevated LFTs, bilirubin Procedure Date: 07/22/2019 Accession Number: [id number] / [id number] Procedure: US - Abdomen Limited CPT Code: Final Report FULL RESULT: EXAM: ABDOMEN ULTRASOUND LIMITED, RUQ EXAM DATE: 07/22/2019 05:32 PM. CLINICAL HISTORY: RUQ US, elevated LFTs, bilirubin. COMPARISON: None. TECHNIQUE: Real-time scanning was performed with static images obtained. Suboptimal due to patient habitus and bowel gas. FINDINGS: Liver: Grossly normal echotexture. No definite masses. Normal overall size, 13.7 cm. Main portal vein flow: Hepatopetal. Gallbladder: Non-mobile echogenic focus in the gallbladder neck, most compatible with gallstone. No wall thickening or definite localized tenderness. Biliary System: CBD measures 6 mm. No intrahepatic or extrahepatic ductal dilatation. Other: Right renal cysts. No hydronephrosis. Pancreas not well seen. IMPRESSION: 1. Cholelithiasis. 2. Right renal cysts. RADIA
[2019-07-22 20:41] VITALS: BP 153/51
--- NOTE | 2019-08-04 23:10 | ED Physician Documentation ---
ED Addendum - Addendum Addendum: 08/04/19 23:09 Dr. Dean did talk with Dr. Johnson prior to leaving the ER, so follow up was arranged by them. Diagnosis: upper abdominal pain, improved elevated liver enzymes cholelithiasis Disposition: discharged home stable condition
== END 2019-07-22 20:41 | disposition home or self-care (01) ==
LOC: ED 14:22
DX: K80.20 Calculus of gallbladder without cholecystitis without obstruction (principal); R74.8 Abnormal levels of other serum enzymes; N28.1 Cyst of kidney, acquired; Z87.442 Personal history of urinary calculi; I10 Essential (primary) hypertension; Z79.82 Long term (current) use of aspirin
CPT/HCPCS: 36415; 76705; 80053; 81001; 81003; 83690; 85025; 87086; 99284

== ENCOUNTER 2019-08-04 07:48 | Day surgery (SDC) | payer MEDICARE, OTHER ==
[2019-08-04] MEDS ORDERED: CEFOTETAN DISODIUM 1 GM VIAL ONE (07:50)
[2019-08-04] MEDS ORDERED: LACTATED RINGERS 1,000 ML IV ONE (08:09)
[2019-08-04] MEDS ORDERED: IOTHALAMATE MEGLUMINE 50 ML VIAL ONE (09:20)
--- NOTE | 2019-08-04 09:25 | ANESTHESIA ---
Pre-Anesthesia VS, & Labs - Diagnosis cholelithiasis - Procedure laparoscopic cholecystectomy Vital Signs: Temp Pulse Resp BP Pulse Ox 36.3 C L 58 L 16 179/110 H 98 08/04/19 07:56 08/04/19 07:56 08/04/19 07:56 08/04/19 07:56 08/04/19 07:56 Height 5 ft 9 in Weight (kg) 79.3 kg Body Mass Index 27.4 - NPO >8 hours Home Medications and Allergies Aspirin [Aspir 81] 81 mg PO ONCE 11/24/14 Latanoprost 0.005% Ophth Drops [Xalatan Ophth Drops] 1 drops EACHEYE QPM 11/24/14 Lisinopril 15 mg PO DAILY 11/24/14 Naproxen Sodium [Aleve] 220 mg PO DAILY 11/24/14 Brimonidine Tartrate/Timolol [Combigan Eye Drops] 1 drop LEFTEYE DAILY 10/06/15 Allergies/Adverse Reactions: Allergies Allergy/AdvReac Type Severity Reaction Status Date / Time codeine AdvReac Itching Verified 08/04/19 08:15 oxycodone AdvReac mood Verified 08/04/19 08:15 changes, nausea Anes History & Medical History - Anesthetic History Anesthesia Complications: reports: No previous complications - Medical History Cardiovascular: reports: Hypertension, High cholesterol Pulmonary: reports: None Gastrointestinal: reports: Cholelithiasis Urinary: reports: Kidney stones Musculoskeletal: reports: Osteoarthritis Endocrine/Autoimmune: reports: None Skin: reports: None Smoking Status: Never smoker - Surgical History General: Bowel surgery, Colonoscopy Exam General: Alert Dental: WNL Mouth Opening: Greater than 4 Fingerbreadths Mallampati classification: II Thyromental Distance: greater than 6 cm Respiratory: Lungs clear Cardiovascular: Regular rate, Normal S1, Normal S2 Mental/Cognitive Status: Alert/Oriented X3 Plan Anesthesia Type: General Consent for Procedure(s) Verified and Reviewed: Yes Code Status: Attempt Resuscitation ASA classification: 2-Mild systemic disease Is this case an emergency?: No
[2019-08-04] MEDS ORDERED: NEOSTIGMINE 1 MG/1 ML 10 ML MDV IVP ONE (09:53)
[2019-08-04] MEDS ORDERED: DEXAMETHASONE 4 MG/ML VIAL IVP ONE (09:53)
[2019-08-04] MEDS ORDERED: fentaNYL 100 MCG/2 ML VIAL IVP ONE (09:53)
[2019-08-04] MEDS ORDERED: GLYCOPYRROLATE 1 MG/5 ML VIAL IVP ONE (09:53)
[2019-08-04] MEDS ORDERED: MIDAZOLAM 2 MG/2 ML VIAL IVP ONE (09:53)
[2019-08-04] MEDS ORDERED: KETOROLAC 15 MG/ML VIAL IVP ONE (09:53)
[2019-08-04] MEDS ORDERED: PROPOFOL 200 MG/20 ML VIAL IVP ONE (09:53)
[2019-08-04] MEDS ORDERED: LIDOCAINE-MPF 2% 5 ML VIAL IM ONE (09:53)
[2019-08-04] MEDS ORDERED: ROCURONIUM 50 MG/5 ML VIAL IVP ONE (09:53)
[2019-08-04] MEDS: BUPIVACAINE 0.5% PF 30 ML VIAL ONE ×2 (10:41→11:10)
[2019-08-04] MEDS: LIDOCAINE 1%-EPI 1:100000 20 ML MDV ONE ×2 (10:41→11:10)
--- NOTE | 2019-08-04 11:20 | OPERATIVE REPORT ---
Operative Report - General Procedure Date: 08/04/19 Planned Procedure: Laparoscopic cholecystectomy with intraoperative cholangiogram Pre-Op Diagnosis: Cholelithiasis and choledocholithiasis Procedure Performed: Laparoscopic cholecystectomy with intraoperative cholangiogram Post Op Diagnosis: Cholelithiasis and choledocholithiasis - Procedure Note Primary Surgeon: Alex Anesthesia Provider: WANDY Mcnamara Anesthesia Technique: General ET tube, Local Pathology: Gall bladder in formalin to pathology Estimated Blood Loss (mL): 25 Findings: Extensive intra-abominal adhesions Free flow of bile into the intrahepatic ducts, common duct and duodenum Complications: None apparent - Other Other Information/Narrative: After obtaining informed consent the patient is brought to the operating room and placed in the supine position on the operating table. Following successful induction of general endotracheal anesthesia, appropriate padding of all bony prominences, and placement of appropriate monitors, the abdomen was prepped and draped in the standard surgical fashion. A timeout was held per scope protocol. All elements of the surgical safety checklist were followed before, during, and after the procedure. We began the procedure by identifying a location for our largest port. The patient has had extensive surgical intervention in the past including an intra- abdominal catastrophe. An incision was created at the superior aspect of the prior incision in the midline just above the umbilicus. This was carried down through the skin. We immediately encountered mesh and so this site was aborted. We moved to the patient's right lateral side to a site we felt might be out of range of the mesh. A 1-1/2 cm horizontal incision was created here and carried down through the skin and subcutaneous tissue. 2-0 Vicryl retention sutures were placed on either side of the fascia at the site and the abdomen was entered under direct vision. The surgeon's finger was gently inserted in the abdominal cavity to be sure there was clear space for placement of the camera and the port. This was achieved by blunt dissection of these adhesions. A 10 mm blunt Root balloon port was then placed in this opening and the abdomen was insufflated to 15 mmHg pressure. The patient was placed in reverse Trendelenburg position with the left side rotated toward the floor. We noted extensive abdominal adhesions. We were able to create a small window to the right upper quadrant allowing us just enough working room. Two 5 mm ports were placed in the right upper quadrant again after infiltration with local anesthetic. They were just lateral to the horizontal incision we had placed for the largest port. We selected a site in the epigastrium where we could clearly see the surface of the abdominal wall. This was anesthetized with local anesthetic and a third port placed here. The gallbladder was elevated up over the liver. There were adhesions to the abdominal wall, the duodenum, the jejunum, the colon, and all other surrounding structures. Gentle dissection allowed us to elevate the gallbladder revealing, finally, the cholecysto hepatoduodenal ligament. The cystic duct and cystic artery were identified. The artery was clipped twice proximally once distally and divided the duct was clipped distally. A douglas was created in the duct. A Cholangiocath was placed through this neck and we performed a cholangiogram. The cholangiogram revealed free flow of bile into the intrahepatic radicles as well as the extrahepatic biliary radicles and free flow of bile into the duodenum from the common duct. No leery obstructions were appreciated.The catheter was then removed. The duct was clipped 3 times proximally and divided. The gallbladder was then liberated from its bed in the liver using Bovie cautery. It was placed in a Endo Catch bag and removed via the largest port site. The wound was then checked for hemostasis and irrigated with 1 L of warm saline solution. The table was flattened and the abdomen was aspirated free of all fluid and particulate matter. The trochars were then removed under direct vision. The abdomen was desufflated. The largest right lower quadrant incision was closed with a single interrupted PDS suture and Monocryl stitches were placed in all of the skin incisions. All sponge, needle, and instrument counts were correct at the conclusion of the case. The patient was allowed to awaken from anesthesia without difficulty and taken to the postanesthesia care unit in good condition.
[2019-08-04] MEDS ORDERED: ACETAMINOPHEN 325 MG TABLET PO PRN (11:27)
[2019-08-04] MEDS ORDERED: IBUPROFEN 600 MG TABLET PO PRN (11:27)
[2019-08-04] MEDS ORDERED: ONDANSETRON 4 MG/2 ML VIAL IVP PRN (11:27)
[2019-08-04] MEDS ORDERED: HYDROcod/ACETAM 7.5 MG/325 MG TABLET PO PRN (11:28)
[2019-08-04] MEDS ORDERED: traMADol 50 MG TABLET PO PRN (11:29)
[2019-08-04 13:30] VITALS: BP 134/74
--- NOTE | 2019-08-17 08:52 | XRAY Report ---
Reason: CHOLANGIOGRAMS Procedure Date: 08/04/2019 Accession Number: [id number] / [id number] Procedure: FL - OR C-Arm Procedure CPT Code: Final Report FULL RESULT: EXAM: FLUOROSCOPIC GUIDANCE EXAM DATE: 08/04/2019 12:42 PM. CLINICAL HISTORY: Cholangiograms. COMPARISON: None. FINDINGS: Status post cholecystectomy is noted. There is focal hyperlucency in the upper part of the common bile duct, which could be due to the image artifact or the gas bubble, recommend clinical correlation. Otherwise, The opacified common bile duct, common hepatic duct and left and right main hepatic ducts with contrast spilling into the duodenum visualized, unremarkable. IMPRESSION: Fluoroscopic guidance provided for clinical team performed the operating room cholangiogram. Total fluoroscopy time: 4 seconds. Number of images: 1. RADIA
== END 2019-08-04 07:49 | disposition home or self-care (01) ==
LOC: SDS 07:48
PROVIDERS: ATTEND Surgery
PROC: 0FJB4ZZ Inspection of Hepatobiliary Duct, Percutaneous Endoscopic Approach (ICD-10-PCS; 2019-08-04)
PROC: BF0C1ZZ Plain Radiography of Hepatobiliary System, All using Low Osmolar Contrast (ICD-10-PCS; 2019-08-04)
PROC: 0DN94ZZ Release Duodenum, Percutaneous Endoscopic Approach (ICD-10-PCS; 2019-08-04)
PROC: 0DNE4ZZ Release Large Intestine, Percutaneous Endoscopic Approach (ICD-10-PCS; 2019-08-04)
PROC: 0DNA4ZZ Release Jejunum, Percutaneous Endoscopic Approach (ICD-10-PCS; 2019-08-04)
PROC: 0FT44ZZ Resection of Gallbladder, Percutaneous Endoscopic Approach (ICD-10-PCS; principal; 2019-08-04 09:15)
DX: K80.10 Calculus of gallbladder with chronic cholecystitis without obstruction (principal); K66.0 Peritoneal adhesions (postprocedural) (postinfection); I10 Essential (primary) hypertension; E78.00 Pure hypercholesterolemia, unspecified; M19.90 Unspecified osteoarthritis, unspecified site; Z87.19 Personal history of other diseases of the digestive system; Z79.891 Long term (current) use of opiate analgesic; Z79.1 Long term (current) use of non-steroidal anti-inflammatories (NSAID); Z79.82 Long term (current) use of aspirin; Z87.891 Personal history of nicotine dependence
CPT/HCPCS: 47564; J7120; Q9961

== ENCOUNTER 2021-07-04 16:08 | Outpatient (CLI) | payer MEDICARE, OTHER ==
--- NOTE | 2021-07-13 09:09 | XRAY Report ---
PROCEDURE: Shoulder 3 View RT INDICATIONS: R SHOULDER PX TECHNIQUE: 3 views of the shoulder were acquired. COMPARISON: None. FINDINGS: Bones: No fractures or dislocations. No suspicious bony lesions. Visualized ribs appear intact. M ild joint space narrowing and periarticular osteophyte formation at the acromioclavicular and glenohu meral joints. Soft tissues: No suspicious soft tissue calcifications. IMPRESSION: Osteoarthritis. No acute fracture. No osseous lesion. If symptoms and/or clinical suspic ion for pathology continue, further assessment with repeat plain films, or advanced imaging (e.g., CT , MRI, or bone scan) is recommended for further assessment. Reviewed by: Chapito Forrester MD on 07/13/2021 9:08 AM PDT Approved by: Chapito Forrester MD on 07/13/2021 9:08 AM PDT Station ID: [id number]
== END 2021-07-04 16:09 | disposition home or self-care (01) ==
LOC: DI.N 16:08
PROVIDERS: ATTEND Internal Medicine
DX: M25.511 Pain in right shoulder (principal); M19.011 Primary osteoarthritis, right shoulder

== ENCOUNTER 2021-07-27 07:26 | Outpatient (CLI) | payer MEDICARE, OTHER ==
--- NOTE | 2021-07-27 13:19 | MRI Report ---
PROCEDURE: Shoulder RT W/O INDICATIONS: PAIN IN RIGHT SHOULDER TECHNIQUE: Noncontrast oblique coronal T2 fast spin echo with fat saturation, oblique sagittal T1 spin echo and T2 fast spin echo with fat saturation, axial T1 spin echo and T2 fast spin echo with fat saturation t hrough the shoulder. COMPARISON: Plain films of the right shoulder dated 07/04/2021. FINDINGS: Image quality: Degraded by motion artifact. Rotator cuff: There is mild T2 signal elevation throughout the supraspinatus and infraspinatus tendon s at the humeral insertion sites, indicating tendinopathy. There is superimposed high-grade intrasubs tance and bursal surface tearing of the mid supraspinatus tendon at the humeral insertion site extend ing the muscular tendinous junction, measuring roughly 15 mm anteroposterior. Low-grade partial-thick ness intrasubstance and articular surface tearing of the infraspinatus tendon at the humeral insertio n site extending the muscular tendinous junction. Low-grade partial-thickness articular surface teari ng of the upper subscapularis tendon at the humeral insertion site extending to the muscular tendinou s junction. Teres minor is intact. No rotator cuff atrophy. Bones and bursae: No bone marrow contusions or fractures. Moderate acromioclavicular joint degenerat ion. The acromion demonstrates conventional anatomy, without an os acromiale. Moderate subacromial/s ubdeltoid bursal fluid is present. Capsule and soft tissues: Diffuse degenerative fraying of the glenoid labrum. The long head of the bi ceps tendon demonstrates normal location and morphology. The rotator interval appears normal, withou t fibrosis. The coracohumeral ligament is normal in thickness. IMPRESSION: 1. Supraspinatus and infraspinatus tendinopathy. 2. High-grade tearing of the supraspinatus tendon. Low-grade partial-thickness tearing of the subscap ularis and infraspinous tendons. 3. Acromioclavicular joint osteoarthritis. 4. Subacromial bursitis. 5. Degenerative glenoid labral tearing. Reviewed by: Chapito Forrester MD on 07/27/2021 1:18 PM PST Approved by: Chapito Forrester MD on 07/27/2021 1:18 PM PST Station ID: [id number]
== END 2021-07-27 07:27 | disposition home or self-care (01) ==
LOC: DI 07:26
PROVIDERS: ATTEND Internal Medicine
DX: M75.101 Unspecified rotator cuff tear or rupture of right shoulder, not specified as traumatic (principal); M19.011 Primary osteoarthritis, right shoulder; M75.51 Bursitis of right shoulder

== ENCOUNTER 2022-05-22 20:34 | Emergency (ER) | payer MEDICARE, OTHER ==
[2022-05-22 21:23] LABS: BASOPHILS % (AUTO) 0.4 %; EOSINOPHILS # (AUTO) 0.3 10^3/uL (0.0-0.7); EOSINOPHILS % (AUTO) 4.9 %; HCT - HEMATOCRIT 39.5 % (42.0-52.0); HGB - HEMOGLOBIN 13.7 g/dL (14.0-18.0); LYMPHOCYTES # (AUTO) 1.5 10^3/uL (1.5-3.5); LYMPHOCYTES % (AUTO) 28.9 %; MEAN CORPUSCULAR HEMOGLOBIN 33.2 pg (27.0-31.0); MEAN CORPUSCULAR HGB CONC 34.7 g/dL (32.0-36.0); MEAN CORPUSCULAR VOLUME 95.6 fL (80.0-94.0); MEAN PLATELET VOLUME 9.1 fL (7.4-11.4); MONOCYTES # (AUTO) 0.5 10^3/uL (0.0-1.0); MONOCYTES % (AUTO) 9.7 %; NEUTROPHILS # (AUTO) 2.9 10^3/uL (1.5-6.6); NEUTROPHILS % (AUTO) 55.9 %; PLT - PLATELET COUNT 197 10^3/uL (130-450); RED BLOOD COUNT 4.13 10^6/uL (4.70-6.10); WHITE BLOOD COUNT 5.2 x10^3/uL (4.8-10.8)
[2022-05-22 21:32] LABS: CALCIUM 9.1 mg/dL (8.5-10.3); CREATININE 1.2 mg/dL (0.6-1.2); POTASSIUM 3.9 mmol/L (3.5-5.0)
[2022-05-22 21:51] LABS: BILIRUBIN,URINE NEGATIVE (NEGATIVE); GLUCOSE, URINE (UA) NEGATIVE (NEGATIVE); KETONES,URINE (UA) NEGATIVE (NEGATIVE); LEUKOCYTE ESTERASE, URINE NEGATIVE (NEGATIVE); NITRITE,URINE POSITIVE (NEGATIVE); OCCULT BLOOD,URINE LARGE (NEGATIVE); PROTEIN,URINE 100 mg/dL (NEGATIVE); UROBILINOGEN,URINE 1 (NORMAL) E.U./dL (NORMAL)
[2022-05-22 21:55] LABS: CLARITY,URINE HAZY (CLEAR)
[2022-05-22] MEDS ORDERED: CEFPODOXIME PROXETIL 100 MG TABLET PO STA (22:04)
[2022-05-22 22:14] LABS: BACTERIA,URINE Moderate /HPF (None Seen); RBC,URINE TNTC /HPF (0-5); SQUAMOUS EPITHELIAL CELL,UR FEW Squamous (<= Few)
--- NOTE | 2022-05-23 00:16 | CT Report ---
PROCEDURE: Abdomen/Pelvis WO INDICATIONS: uti, pmh kid stones TECHNIQUE: Noncontrast 5 mm thick sections acquired from the diaphragms to the symphysis. 5 mm coronal and sagi ttal reformats were then performed. For radiation dose reduction, the following was used: automated exposure control, adjustment of mA and/or kV according to patient size. COMPARISON: CT abdomen pelvis 07/01/2019 FINDINGS: Image quality: Excellent. Lung bases:A pulmonary nodule within the right middle lobe is demonstrated measuring up to 0.8 cm on series 4 image 10. The finding is unchanged from the prior study. There is mild dependant atelectasis and scarring in the lung bases. Heart: Heart is normal in size. URINARY: Right Kidney and Ureter: There is a 0.3 cm nonobstructing stone within the right kidney. A focal co rtical calcifications also demonstrated within the inferior pole. No hydronephrosis. No hydroureter. There is an exophytic right renal cyst. Left Kidney and Ureter: No stones or hydronephrosis. No hydroureter. Bladder:The urinary bladder is partially distended. There is concentric bladder wall thickening most prominent along the bladder dome with associated mild fat stranding. There are also slightly hyperat tenuating filling defects in the bladder suggestive of blood clots. No stones. ABDOMEN: Liver: Noncontrast evaluation of the liver demonstrates no discrete mass. Gallbladder:Surgically absent. Biliary ducts: No biliary ductal dilatation. Pancreas: Unremarkable. Spleen: Normal in size. Adrenal Glands: No adrenal nodules. Stomach and Bowel: Stomach, small bowel loops, and colon are normal in caliber and wall thickness. T he appendix is normal in appearance. There is colonic diverticulosis without acute diverticulitis. Peritoneum: No abnormal intraperitoneal fluid. No free air. Ventral Wall: No hernia. Abdominal Nodes: No retroperitoneal or mesenteric adenopathy by size criteria. Vessels: Aorta and inferior vena cava are normal in size. PELVIS: Pelvic Organs: Unremarkable. Pelvic Nodes: No enlarged lymph nodes. Miscellaneous: No inguinal hernias identified. Bones: A mild superior endplate compression deformity of the T11 vertebral body appears unchanged. V isualized osseous structures demonstrate no suspicious focal lesions. IMPRESSION: 1. Mild bladder wall thickening with associated mild fat stranding suggestive of a cystitis. Recommen d correlation with urinalysis. 2. Internal filling defects within the bladder are nonspecific but suggestive of clot. However, corre lation is recommended with cystoscopy to exclude a mass. 3. Right nephrolithiasis. No evidence of obstructive uropathy in the right or left kidney. 4. No evidence of appendicitis. Reviewed by: Hill Anderson MD on 05/23/2022 12:15 AM PDT Approved by: Hill Anderson MD on 05/23/2022 12:15 AM PDT Station ID: [id number]
--- NOTE | 2022-05-23 00:20 | ED Physician Documentation ---
History of Present Illness - Stated complaint Stated Complaint: BLOOD IN URINE - Chief complaint Chief Complaint: General - History obtained from History obtained from: Patient - Additonal information Additional information: 81-year-old man with history of renal stones presents with hematuria since last night. States he also has back pain but this is not worse than baseline. Denies nausea vomiting abdominal pain fever dysuria. Review of Systems Ten Systems: 10 systems reviewed and negative Constitutional: denies: Fever, Chills : reports: Hematuria PD PAST MEDICAL HISTORY - Past Medical History Cardiovascular: Hypertension, High cholesterol Respiratory: None Endocrine/Autoimmune: None GI: Cholelithiasis : Kidney stones HEENT: Glaucoma, Chronic hearing loss Psych: None Musculoskeletal: Osteoarthritis Derm: None - Past Surgical History Past Surgical History: Yes General: Bowel surgery, Colonoscopy - Present Medications Home Medications: Ambulatory Orders Medication Instructions Recorded Confirmed Aspirin [Aspir 81] 81 mg PO ONCE 11/24/14 08/04/19 Latanoprost 0.005% Ophth Drops 1 drops EACHEYE QPM 11/24/14 08/04/19 [Xalatan Ophth Drops] Naproxen Sodium [Aleve] 220 mg PO DAILY 11/24/14 08/04/19 lisinopriL [Lisinopril] 15 mg PO DAILY 11/24/14 08/04/19 Brimonidine Tartrate/Timolol 1 drop LEFTEYE DAILY 10/06/15 08/04/19 [Combigan Eye Drops] traMADol [Ultram] 50 mg PO Q3HR PRN #30 tablet 08/04/19 Cefpodoxime Proxetil [Vantin] 200 mg PO Q12H #28 tablet 05/23/22 - Allergies Allergies/Adverse Reactions: Allergies Allergy/AdvReac Type Severity Reaction Status Date / Time codeine AdvReac Itching Verified 05/22/22 20:40 oxycodone AdvReac mood Verified 05/22/22 20:40 changes, nausea - Social History Does the pt smoke?: No Smoking Status: Never smoker Does the pt drink ETOH?: Yes Does the pt have substance abuse?: No PD ED PE NORMAL - Vitals Vital signs reviewed: Yes - General General: Alert and oriented X 3, No acute distress, Well developed/nourished - HEENT HEENT: Atraumatic, PERRL, EOMI - Neck Neck: Supple, no meningeal sign - Cardiac Cardiac: RRR - Respiratory Respiratory: No respiratory distress, Clear bilaterally - Abdomen Abdomen: Non tender, Non distended - Back Back: Other (BL CVA discomfort) - Derm Derm: Normal color, Warm and dry - Extremities Extremities: No deformity - Neuro Neuro: Alert and oriented X 3, No motor deficit, No sensory deficit - Psych Psych: Normal mood, Normal affect Results - Vitals Vitals: Vital Signs - 24 hr 05/22/22 20:38 Temperature 36.8 C Heart Rate 75 Respiratory 16 Rate Blood Pressure 119/85 H O2 Saturation 97 Oxygen O2 Source Room air - Labs Labs: Laboratory Tests 05/22/22 05/22/22 05/22/22 21:18 21:18 21:19 WBC 5.2 RBC 4.13 L Hgb 13.7 L Hct 39.5 L MCV 95.6 H MCH 33.2 H MCHC 34.7 RDW 12.0 Plt Count 197 MPV 9.1 Neut # (Auto) 2.9 Lymph # (Auto) 1.5 [place] # (Auto) 0.5 Eos # (Auto) 0.3 Baso # (Auto) 0.0 Absolute Nucleated RBC 0.00 Nucleated RBC % 0.0 Sodium 137 Potassium 3.9 Chloride 103 Carbon Dioxide 25 Anion Gap 9.0 BUN 27 H Creatinine 1.2 Estimated GFR (MDRD) 58 L Glucose 111 H Calcium 9.1 Urine Color YELLOW Urine Clarity HAZY Urine pH 6.0 Ur Specific [place] 1.025 Urine Protein 100 H Urine Glucose (UA) NEGATIVE Urine Ketones NEGATIVE Urine Occult Blood LARGE H Urine Nitrite POSITIVE H Urine Bilirubin NEGATIVE Urine Urobilinogen 1 (NORMAL) Ur Leukocyte Esterase NEGATIVE Urine RBC TNTC H Urine WBC 6-10 H Ur Squamous Epith Cells FEW Squamous Urine Bacteria Moderate H Ur Microscopic Review INDICATED Urine Culture Comments INDICATED PD MEDICAL DECISION MAKING - ED course ED course: 81-year-old man presents with hematuria, found to have urinary tract infection on urinalysis. CT without evidence of obstructing stones. First dose of antibiotics provided here in the emergency department. Discussed with patient recommendation for cystoscopy to exclude mass in bladder. Antibiotic prescription given. Return precautions given. Plan to follow-up with primary doctor for referral to urology. Departure - Departure Disposition: 01 Home, Self Care Clinical Impression: UTI (urinary tract infection), Hematuria Condition: Stable Instructions: ED UTI Cystitis Male Prescriptions: Cefpodoxime Proxetil [Vantin] 200 mg PO Q12H #28 tablet Comments: You are seen in the emergency department for evaluation of blood in the urine. You have a urinary tract infection. You also have a possible clot versus mass in your bladder and it was recommended that you follow-up with your primary doctor for referral to urology for cystoscopy to exclude a mass. Please return to the emergency department if you have any new or worsening symptoms or other concerns. Take your antibiotics as prescribed.
[2022-05-23 00:29] VITALS: BP 125/79
== END 2022-05-23 00:30 | disposition home or self-care (01) ==
LOC: ED 20:34
DX: N39.0 Urinary tract infection, site not specified (principal); R31.9 Hematuria, unspecified
CPT/HCPCS: 36415; 74176; 80048; 81001; 85025; 87086; 99283; 99284; A9270; 81003

== ENCOUNTER 2022-06-30 07:08 | Outpatient (CLI) | payer MEDICARE, OTHER | END 2022-06-30 07:09 | disposition critical access hospital (66) | LOC: EMS 07:08 | DX: R31.9 Hematuria, unspecified (principal); R39.89 Other symptoms and signs involving the genitourinary system; R10.30 Lower abdominal pain, unspecified | CPT/HCPCS: A0425; A0429 ==

== ENCOUNTER 2022-06-30 07:30 | Emergency (ER) | payer MEDICARE, OTHER ==
--- NOTE | 2022-06-30 07:43 | ED Physician Documentation ---
PD HPI MALE - Stated complaint Stated Complaint: MALE - History obtained from History obtained from: Patient - History of Present Illness Timing - onset: Today Timing - duration: Hours Timing - details: Abrupt onset, Still present Associated symptoms: Dysuria, Unable to urinate, Hematuria, Abdominal pain Similar symptoms before: Diagnosis (bladder tumor with bleeding) Recently seen: Emergency Dept - Additional information Additional information: Frank Ahumada is an 81-year-old male who has recently come into the emergency department with hematuria was diagnosed with a urinary tract infection and he subsequently had imaging done demonstrating the presence of a bladder tumor. Today he has been unable to void and is in extreme pain in his lower abdomen. Any movement hurts. Review of Systems Constitutional: denies: Fever Eyes: denies: Decreased vision Ears: denies: Ear pain Nose: denies: Congestion Throat: denies: Sore throat Cardiac: denies: Chest pain / pressure Respiratory: denies: Dyspnea, Cough GI: reports: Abdominal Pain, Nausea, Constipation. denies: Vomiting, Diarrhea : reports: Unable to Void, Hematuria. denies: Dysuria PD PAST MEDICAL HISTORY - Past Medical History Cardiovascular: Hypertension, High cholesterol Respiratory: None Endocrine/Autoimmune: None GI: Cholelithiasis : Kidney stones HEENT: Glaucoma, Chronic hearing loss Psych: None Musculoskeletal: Osteoarthritis Derm: None - Past Surgical History Past Surgical History: Yes General: Bowel surgery, Colonoscopy - Present Medications Home Medications: Ambulatory Orders Medication Instructions Recorded Confirmed Aspirin [Aspir 81] 81 mg PO ONCE 11/24/14 08/04/19 Latanoprost 0.005% Ophth Drops 1 drops EACHEYE QPM 11/24/14 08/04/19 [Xalatan Ophth Drops] Naproxen Sodium [Aleve] 220 mg PO DAILY 11/24/14 08/04/19 lisinopriL [Lisinopril] 15 mg PO DAILY 11/24/14 08/04/19 Brimonidine Tartrate/Timolol 1 drop LEFTEYE DAILY 10/06/15 08/04/19 [Combigan Eye Drops] traMADol [Ultram] 50 mg PO Q3HR PRN #30 tablet 08/04/19 Cefpodoxime Proxetil [Vantin] 200 mg PO Q12H #28 tablet 05/23/22 - Allergies Allergies/Adverse Reactions: Allergies Allergy/AdvReac Type Severity Reaction Status Date / Time codeine AdvReac Itching Verified 06/30/22 07:36 oxycodone AdvReac mood Verified 06/30/22 07:36 changes, nausea - Social History Does the pt smoke?: No Smoking Status: Never smoker Does the pt drink ETOH?: Yes Does the pt have substance abuse?: No PD ED PE NORMAL - General General: Alert and oriented X 3, Well developed/nourished, Other (appears to be in pain and winches with movement) - HEENT HEENT: Atraumatic, PERRL, EOMI - Neck Neck: Supple, no meningeal sign - Cardiac Cardiac: RRR, No murmur - Respiratory Respiratory: No respiratory distress, Clear bilaterally - Abdomen Abdomen: Soft, Other (There is lower abdominal distention with tenderness to even light palpation. ) - Back Back: No CVA TTP, No spinal TTP - Derm Derm: Normal color, Warm and dry, No rash - Extremities Extremities: No deformity, No edema - Neuro Neuro: Alert and oriented X 3, rolling attendant 2-12 intact, No motor deficit, Normal speech Eye Opening: Spontaneous Motor: Obeys Commands Verbal: Oriented GCS Score: 15 - Psych Psych: Normal mood, Normal affect Results - Vitals Vitals: Vital Signs - 24 hr 06/30/22 06/30/22 06/30/22 07:36 08:09 10:55 Temperature 36.1 C L Heart Rate 98 84 86 Respiratory 28 H 18 16 Rate Blood Pressure 198/84 H 146/77 H 160/93 H O2 Saturation 100 98 96 06/30/22 12:20 Temperature Heart Rate 83 Respiratory 16 Rate Blood Pressure 172/94 H O2 Saturation 100 Oxygen O2 Source Room air - Labs Labs: Laboratory Tests 06/30/22 06/30/22 06/30/22 07:45 07:45 07:45 WBC 8.8 RBC 4.06 L Hgb 12.8 L Hct 37.7 L MCV 92.9 MCH 31.5 H MCHC 34.0 RDW 11.7 L Plt Count 247 MPV 9.0 Neut # (Auto) 6.1 Lymph # (Auto) 1.8 [place] # (Auto) 0.7 Eos # (Auto) 0.1 Baso # (Auto) 0.0 Absolute Nucleated RBC 0.00 Nucleated RBC % 0.0 Sodium 139 Potassium 3.8 Chloride 105 Carbon Dioxide 18 L Anion Gap 16.0 H BUN 33 H Creatinine 1.3 H Estimated GFR (MDRD) 53 L Glucose 126 H Calcium 10.0 Total Bilirubin 0.7 AST 36 ALT 33 Alkaline Phosphatase 74 Total Protein 7.3 Albumin 4.0 Globulin 3.3 Albumin/Globulin Ratio 1.2 Lipase 35 Urine Color RED/BLOODY Urine Clarity BLOODY Urine pH 6.0 Ur Specific [place] 1.020 Urine Protein >=300 H Urine Glucose (UA) 100 H Urine Ketones 15 H Urine Occult Blood LARGE H Urine Nitrite POSITIVE H Urine Bilirubin NEGATIVE Urine Urobilinogen 1 (NORMAL) Ur Leukocyte Esterase NEGATIVE Urine RBC TNTC H Urine WBC 6-10 H Ur Squamous Epith Cells NONE SEEN Urine Bacteria None Seen Urine Sperm PRESENT Ur Microscopic Review INDICATED Urine Culture Comments INDICATED PD MEDICAL DECISION MAKING - ED course Complexity details: reviewed results, re-evaluated patient, considered differential, d/w patient, d/w family, d/w recruiting and selection consultant (Dr. Nelson urology at [facility]. Asks us to irrigate to clear and have the patient follow up for a "sooner" appointment. ) ED course: 81-year-old man male presents to the emergency department with acute clot retention. We were able to place a three-way Vela and we were able to irrigate to clear. The patient had remarkable improvement in his pain with the placement of Vela catheter and with the continuous bladder irrigation we did get normal-appearing urine. I contacted [facility] urology with the thought that the patient likely would need to be seen prior to July 19 as this is likely to be an ongoing problem and clot retention will likely recur. Dr. Enciso was supportive and indicated they would likely be able to see the patient in a timely fashion. He recommended leaving the three-way Vela in place, irrigating to clear and following up as needed, as well as a call to the clinic on Saturday for an expedited appointment. Departure - Departure Disposition: 01 Home, Self Care Clinical Impression: Bladder mass, Clot retention of urine Hematuria Qualifiers: Hematuria type: gross Qualified Code(s): R31.0 - Gross hematuria Condition: Stable Instructions: Transureth Bladder Tumor Resect Dc, ED Catheter Care Vela, ED Hematuria, ED Retention Urinary Male Follow-Up: Gayle Munoz MD [Primary Care Provider] - SONIYA ENCISO [Physician No Access] - Comments: Frank, today it looks like you have some clot retention. We have placed a Vela catheter and rinsed your bladder out and the recommendation is to continue to stay hydrated enough to keep your urine clear. There is always a possibility of further bleeding and a recurrence of clot retention, at which point, a return to the emergency department for irrigation is in order. I have talked to the urologist at [facility] and he has assured me that they should be able to get you in for an appointment sooner than July 19. Please call their office on Saturday. We are here 24 hours a day if you run into a problem. Alternatively a visit to the emergency department at [facility] may be in order as the urologist is there. Discharge Date/Time: 06/30/22 12:28
[2022-06-30 07:52] LABS: BASOPHILS % (AUTO) 0.3 %; EOSINOPHILS # (AUTO) 0.1 10^3/uL (0.0-0.7); EOSINOPHILS % (AUTO) 1.4 %; HCT - HEMATOCRIT 37.7 % (42.0-52.0); HGB - HEMOGLOBIN 12.8 g/dL (14.0-18.0); LYMPHOCYTES # (AUTO) 1.8 10^3/uL (1.5-3.5); LYMPHOCYTES % (AUTO) 20.3 %; MEAN CORPUSCULAR HEMOGLOBIN 31.5 pg (27.0-31.0); MEAN CORPUSCULAR VOLUME 92.9 fL (80.0-94.0); MONOCYTES # (AUTO) 0.7 10^3/uL (0.0-1.0); MONOCYTES % (AUTO) 8.1 %; NEUTROPHILS # (AUTO) 6.1 10^3/uL (1.5-6.6); NEUTROPHILS % (AUTO) 69.7 %; PLT - PLATELET COUNT 247 10^3/uL (130-450); RED BLOOD COUNT 4.06 10^6/uL (4.70-6.10); RED CELL DISTRIBUTION WIDTH 11.7 % (12.0-15.0); WHITE BLOOD COUNT 8.8 x10^3/uL (4.8-10.8)
[2022-06-30 08:03] LABS: ALBUMIN/GLOBULIN RATIO 1.2 (1.0-2.2); BILIRUBIN,TOTAL 0.7 mg/dL (0.2-1.0); BILIRUBIN,URINE NEGATIVE (NEGATIVE); CREATININE 1.3 mg/dL (0.6-1.2); GLUCOSE, URINE (UA) 100 mg/dL (NEGATIVE); KETONES,URINE (UA) 15 mg/dL (NEGATIVE); LEUKOCYTE ESTERASE, URINE NEGATIVE (NEGATIVE); NITRITE,URINE POSITIVE (NEGATIVE); OCCULT BLOOD,URINE LARGE (NEGATIVE); POTASSIUM 3.8 mmol/L (3.5-5.0); PROTEIN,URINE >=300 mg/dL (NEGATIVE); TOTAL PROTEIN 7.3 g/dL (6.7-8.2); UROBILINOGEN,URINE 1 (NORMAL) E.U./dL (NORMAL)
[2022-06-30 08:05] LABS: CLARITY,URINE BLOODY (CLEAR)
[2022-06-30 08:06] LABS: BACTERIA,URINE None Seen /HPF (None Seen); RBC,URINE TNTC /HPF (0-5); SPERM,URINE PRESENT; SQUAMOUS EPITHELIAL CELL,UR NONE SEEN (<= Few)
[2022-06-30 12:20] VITALS: BP 172/94
== END 2022-06-30 12:28 | disposition home or self-care (01) ==
LOC: EDUNIT# → ED 07:30
DX: N32.89 Other specified disorders of bladder (principal); R33.8 Other retention of urine; R31.0 Gross hematuria; D49.4 Neoplasm of unspecified behavior of bladder
CPT/HCPCS: 36415; 51702; 80053; 81001; 81003; 83690; 85025; 87086; 99283; 99284

== ENCOUNTER 2022-07-07 10:11 | Emergency (ER) | payer MEDICARE, OTHER ==
[2022-07-07 10:19] VITALS: BP 138/78
--- NOTE | 2022-07-07 10:34 | ED Physician Documentation ---
History of Present Illness - Stated complaint Stated Complaint: LEAKING CATH - Chief complaint Chief Complaint: General - History obtained from History obtained from: Patient - Additonal information Additional information: 81-year-old gentleman with history of Vela catheter in place related to bladder mass had a leak from the bag this morning. The catheter itself is only a week old. Review of Systems Constitutional: denies: Fever, Chills Throat: reports: Reviewed and negative Cardiac: reports: Reviewed and negative PD PAST MEDICAL HISTORY - Past Medical History Cardiovascular: Hypertension, High cholesterol Respiratory: None Neuro: Seizure disorder Endocrine/Autoimmune: None GI: Cholelithiasis : Kidney stones HEENT: Glaucoma, Chronic hearing loss Psych: None Musculoskeletal: Osteoarthritis Derm: None - Past Surgical History Past Surgical History: Yes General: Bowel surgery, Colonoscopy Ortho: Carpal Tunnel surgery - Present Medications Home Medications: Ambulatory Orders Medication Instructions Recorded Confirmed Aspirin [Aspir 81] 81 mg PO ONCE 11/24/14 08/04/19 Latanoprost 0.005% Ophth Drops 1 drops EACHEYE QPM 11/24/14 08/04/19 [Xalatan Ophth Drops] Naproxen Sodium [Aleve] 220 mg PO DAILY 11/24/14 08/04/19 lisinopriL [Lisinopril] 15 mg PO DAILY 11/24/14 08/04/19 Brimonidine Tartrate/Timolol 1 drop LEFTEYE DAILY 10/06/15 08/04/19 [Combigan Eye Drops] traMADol [Ultram] 50 mg PO Q3HR PRN #30 tablet 08/04/19 Cefpodoxime Proxetil [Vantin] 200 mg PO Q12H #28 tablet 05/23/22 - Allergies Allergies/Adverse Reactions: Allergies Allergy/AdvReac Type Severity Reaction Status Date / Time codeine AdvReac Itching Verified 06/30/22 07:36 oxycodone AdvReac mood Verified 06/30/22 07:36 changes, nausea - Social History Does the pt smoke?: No Smoking Status: Never smoker Does the pt drink ETOH?: Yes Does the pt have substance abuse?: No - Immunizations Immunizations are current?: Yes PD ED PE NORMAL - Vitals Vital signs reviewed: Yes - General General: Alert and oriented X 3, No acute distress - Abdomen Abdomen: Non tender - Male Male : Other (It was just the bag that was leaking, the Vela catheter was in place and not leaking.) - Neuro Neuro: Alert and oriented X 3, Normal speech Results - Vitals Vitals: Vital Signs - 24 hr 07/07/22 10:16 Temperature 36.6 C Heart Rate 79 Respiratory 20 Rate Blood Pressure 138/78 H O2 Saturation 100 Oxygen O2 Source Room air PD MEDICAL DECISION MAKING - ED course ED course: 81-year-old gentleman with a leak from his Vela bag, given a new Vela bag. Departure - Departure Disposition: 01 Home, Self Care Clinical Impression: Vela catheter problem Qualifiers: Encounter type: initial encounter Qualified Code(s): T83.9XXA - Unspecified complication of genitourinary prosthetic device, implant and graft, initial encounter Condition: Good Record reviewed to determine appropriate education?: Yes Instructions: ED Catheter Care Vela
== END 2022-07-07 10:46 | disposition home or self-care (01) ==
LOC: ED 10:11
DX: T83.031A Leakage of indwelling urethral catheter, initial encounter (principal)
CPT/HCPCS: 99281; 99282

== ENCOUNTER 2022-07-14 16:28 | Emergency (ER) | payer MEDICARE, OTHER ==
--- NOTE | 2022-07-14 17:05 | ED Physician Documentation ---
History of Present Illness - Stated complaint Stated Complaint: BLOCKED CATH - Chief complaint Chief Complaint: General - History obtained from History obtained from: Patient - History of Present Illness Pain level max: 5 Pain level now: 5 - Additonal information Additional information: Patient is an 81-year-old male who presents to the emergency department complaining of a blocked Vela catheter. He states the catheter was placed about 2 weeks ago for inability to urinate. He has had intermittent blood in the urine since that time. He states today the catheter stopped draining and he was having lower abdominal pain. Nothing makes it better or worse. No fevers. No chills. Review of Systems Constitutional: denies: Fever, Chills GI: denies: Vomiting, Diarrhea Skin: denies: Rash PD PAST MEDICAL HISTORY - Past Medical History Past Medical History: Yes Cardiovascular: Hypertension, High cholesterol Respiratory: None Neuro: Seizure disorder Endocrine/Autoimmune: None GI: Cholelithiasis : Kidney stones HEENT: Glaucoma, Chronic hearing loss Psych: None Musculoskeletal: Osteoarthritis Derm: None - Past Surgical History Past Surgical History: Yes General: Bowel surgery, Colonoscopy Ortho: Carpal Tunnel surgery - Present Medications Home Medications: Ambulatory Orders Medication Instructions Recorded Confirmed Aspirin [Aspir 81] 81 mg PO ONCE 11/24/14 08/04/19 Latanoprost 0.005% Ophth Drops 1 drops EACHEYE QPM 11/24/14 08/04/19 [Xalatan Ophth Drops] Naproxen Sodium [Aleve] 220 mg PO DAILY 11/24/14 08/04/19 lisinopriL [Lisinopril] 15 mg PO DAILY 11/24/14 08/04/19 Brimonidine Tartrate/Timolol 1 drop LEFTEYE DAILY 10/06/15 08/04/19 [Combigan Eye Drops] traMADol [Ultram] 50 mg PO Q3HR PRN #30 tablet 08/04/19 Cefpodoxime Proxetil [Vantin] 200 mg PO Q12H #28 tablet 05/23/22 - Allergies Allergies/Adverse Reactions: Allergies Allergy/AdvReac Type Severity Reaction Status Date / Time codeine AdvReac Itching Verified 07/14/22 16:40 oxycodone AdvReac mood Verified 07/14/22 16:40 changes, nausea - Social History Does the pt smoke?: No Smoking Status: Never smoker Does the pt drink ETOH?: Yes Does the pt have substance abuse?: No - Immunizations Immunizations are current?: Yes PD ED PE NORMAL - Vitals Vital signs reviewed: Yes - General General: Alert and oriented X 3 - HEENT HEENT: Moist mucous membranes - Neck Neck: Supple, no meningeal sign - Cardiac Cardiac: RRR - Respiratory Respiratory: No respiratory distress, Clear bilaterally - Abdomen Abdomen: Soft, Non tender, Non distended - Male Male : Other (Vela catheter in place, no urine draining.) - Derm Derm: Warm and dry - Neuro Neuro: Alert and oriented X 3 - Psych Psych: Normal mood, Normal affect Results - Vitals Vitals: Vital Signs - 24 hr 07/14/22 16:38 Temperature 37.1 C Heart Rate 91 Respiratory 18 Rate Blood Pressure 137/97 H O2 Saturation 98 Oxygen O2 Source Room air PD MEDICAL DECISION MAKING - ED course Complexity details: re-evaluated patient, considered differential, d/w patient ED course: The Vela catheter was irrigated with approximately 1 L of saline. There were several clots removed. Urine is draining clear in color. Patient feels much better. This has been an ongoing issue for the patient. No symptoms of UTI. No fevers. No altered mental status. I encouraged the patient to continue oral hydration and follow-up closely with his PCP/urologist. Patient counseled regarding signs and symptoms for which I believe and urgent re-evaluation would be necessary. Patient with good understanding of and agreement to plan and is comfortable going home at this time This document was made in part using voice recognition software. While efforts are made to proofread this document, sound alike and grammatical errors may occur. Departure - Departure Disposition: 01 Home, Self Care Clinical Impression: Clot retention of urine Hematuria Qualifiers: Hematuria type: gross Qualified Code(s): R31.0 - Gross hematuria Vela catheter problem Qualifiers: Encounter type: initial encounter Qualified Code(s): T83.9XXA - Unspecified complication of genitourinary prosthetic device, implant and graft, initial encounter Condition: Good Instructions: ED Catheter Care Vela Follow-Up: Gayle Munoz MD [Primary Care Provider] - Within 1 week Comments: Please will follow up with your doctor for further care. Return if you worsen. Your catheter was flushed tonight. The clots were removed. Please make sure you are drinking plenty of fluid at home.
[2022-07-14 18:20] VITALS: BP 143/82
== END 2022-07-14 18:20 | disposition home or self-care (01) ==
LOC: ED 16:28
DX: R33.8 Other retention of urine (principal); T83.091A Other mechanical complication of indwelling urethral catheter, initial encounter; R31.0 Gross hematuria
CPT/HCPCS: 51700; 99282

== ENCOUNTER 2022-07-22 07:26 | Emergency (ER) | payer MEDICARE, OTHER ==
--- NOTE | 2022-07-22 08:14 | ED Physician Documentation ---
History of Present Illness - Stated complaint Stated Complaint: CATH CLOSED - Chief complaint Chief Complaint: General - History obtained from History obtained from: Patient - Additonal information Additional information: Patient is an 81-year-old male presenting for evaluation of catheter issue. He has not had drainage from the catheter this morning reports suprapubic tenderness. Yesterday it was draining well with no cloudiness or blood. He has had intermittent issues with the catheter becoming blocked requiring ED visits for Irrigation. He has seen local urologist here in [place] and is scheduled for a follow-up visit on Saturday to have the catheter removed and a cystoscopy. He is unsure of the nature of what is causing his urinary retention. He does not take a blood thinner.He denies fever, chest pain, difficulty breathing, vomiting. Review of Systems Constitutional: denies: Fever Nose: denies: Congestion Throat: denies: Sore throat Cardiac: denies: Chest pain / pressure Respiratory: denies: Dyspnea GI: reports: Abdominal Pain (Suprapubic) : reports: Unable to Void Musculoskeletal: denies: Back pain Neurologic: denies: Headache PD PAST MEDICAL HISTORY - Past Medical History Cardiovascular: Hypertension, High cholesterol Respiratory: None Neuro: Seizure disorder Endocrine/Autoimmune: None GI: Cholelithiasis : Kidney stones HEENT: Glaucoma, Chronic hearing loss Psych: None Musculoskeletal: Osteoarthritis Derm: None - Past Surgical History Past Surgical History: Yes General: Bowel surgery, Colonoscopy Ortho: Carpal Tunnel surgery - Present Medications Home Medications: Ambulatory Orders Medication Instructions Recorded Confirmed Aspirin [Aspir 81] 81 mg PO ONCE 11/24/14 08/04/19 Latanoprost 0.005% Ophth Drops 1 drops EACHEYE QPM 11/24/14 08/04/19 [Xalatan Ophth Drops] Naproxen Sodium [Aleve] 220 mg PO DAILY 11/24/14 08/04/19 lisinopriL [Lisinopril] 15 mg PO DAILY 11/24/14 08/04/19 Brimonidine Tartrate/Timolol 1 drop LEFTEYE DAILY 10/06/15 08/04/19 [Combigan Eye Drops] traMADol [Ultram] 50 mg PO Q3HR PRN #30 tablet 08/04/19 Cefpodoxime Proxetil [Vantin] 200 mg PO Q12H #28 tablet 05/23/22 - Allergies Allergies/Adverse Reactions: Allergies Allergy/AdvReac Type Severity Reaction Status Date / Time codeine AdvReac Itching Verified 07/14/22 16:40 oxycodone AdvReac mood Verified 07/14/22 16:40 changes, nausea - Social History Does the pt smoke?: No Smoking Status: Never smoker Does the pt drink ETOH?: Yes Does the pt have substance abuse?: No - Immunizations Immunizations are current?: Yes PD ED PE NORMAL - General General: Alert and oriented X 3, No acute distress, Well developed/nourished - HEENT HEENT: Atraumatic - Neck Neck: Supple, no meningeal sign - Cardiac Cardiac: RRR, Strong equal pulses - Respiratory Respiratory: No respiratory distress, Clear bilaterally - Abdomen Abdomen: Soft, Other (Suprapubic tenderness, RN has already started to irrigate the Vela catheter with blood-tinged urine in the bag) - Derm Derm: Warm and dry - Neuro Neuro: Normal speech Results - Vitals Vitals: Vital Signs - 24 hr 07/22/22 07/22/22 07:31 09:52 Temperature 36.7 C Heart Rate 101 H 75 Respiratory 24 16 Rate Blood Pressure 146/78 H 135/75 H O2 Saturation 94 97 Oxygen O2 Source Room air PD MEDICAL DECISION MAKING - ED course Complexity details: re-evaluated patient ED course: Patient presenting for evaluation of Vela catheter problem. His catheter was initially not draining. Nurse was initially able to irrigate out some clots but continued to have difficulties with getting catheter to flow. A new catheter was placed as the previous 1 had been in for 1 month with improvement in symptoms.Bladder scan only shows 30 cc. No signs of urinary retention despite catheter at this time. No further clots. Patient is feeling much better. Patient is counseled on need for close follow-up with his urologist and already has an appointment scheduled for this week. Departure - Departure Disposition: 01 Home, Self Care Clinical Impression: Hematuria Vela catheter problem Qualifiers: Encounter type: subsequent encounter Qualified Code(s): T83.9XXD - Unspecified complication of genitourinary prosthetic device, implant and graft, subsequent encounter Condition: Stable Instructions: ED Catheter Care Vela Follow-Up: Mine Thorne MD [Physician No Access] - Comments: Please keep your follow-up appointment with your urologist on Saturday. If you again have any issues with your catheter please return to the emergency department. Discharge Date/Time: 07/22/22 09:53
[2022-07-22 09:52] VITALS: BP 135/75
== END 2022-07-22 09:53 | disposition home or self-care (01) ==
LOC: ED 07:26
DX: T83.091A Other mechanical complication of indwelling urethral catheter, initial encounter (principal); Y84.6 Urinary catheterization as the cause of abnormal reaction of the patient, or of later complication, without mention of misadventure at the time of the procedure; R31.9 Hematuria, unspecified; R10.30 Lower abdominal pain, unspecified; I10 Essential (primary) hypertension; Z79.82 Long term (current) use of aspirin
CPT/HCPCS: 99281; 99282

== ENCOUNTER 2022-08-11 19:36 | Emergency (ER) | payer MEDICARE, OTHER ==
--- NOTE | 2022-08-11 19:51 | ED Physician Documentation ---
PD HPI ABD PAIN - Stated complaint Stated Complaint: BLADDER PX - Chief complaint Chief Complaint: Abd Pain - History obtained from History obtained from: Patient - Additional information Additional information: This is an 81-year-old male with a past medical history of bladder mass reportedly as well as hematuria for which she is followed by urology who presents with "bladder" discomfort over the last couple days but worsening quite a bit today. He states it hurt quite a bit when he was trying to pee and he had hematuria that he has had hematuria for the last several months. He has passed some clots at times but this is not uncommon for him.He has not had any fever or chills, no chest pain or difficulty breathing, no nausea, vomiting, diarrhea. He does urinate frequently And in small amounts though again this is not uncommon for him.He does not feel like he did last time that he had urinary retention, this feels more like when he has had urine infections in the past. The patient states last time he went to the urologist, they removed his catheter and he has been voiding okay though continues to have bloody urine. He was on flomax but it caused him to be dizzy so they stopped it and thus far haven't tried anything else. He has follow-up scheduled in September but is planning to call the urologist on Saturday. PD PAST MEDICAL HISTORY - Past Medical History Cardiovascular: Hypertension, High cholesterol Respiratory: None Neuro: Seizure disorder Endocrine/Autoimmune: None GI: Cholelithiasis : Kidney stones HEENT: Glaucoma, Chronic hearing loss Psych: None Musculoskeletal: Osteoarthritis Derm: None - Past Surgical History Past Surgical History: Yes General: Bowel surgery, Colonoscopy Ortho: Carpal Tunnel surgery - Present Medications Home Medications: Ambulatory Orders Medication Instructions Recorded Confirmed Aspirin [Aspir 81] 81 mg PO ONCE 11/24/14 08/11/22 Latanoprost 0.005% Ophth Drops 1 drops EACHEYE QPM 11/24/14 08/11/22 [Xalatan Ophth Drops] Naproxen Sodium [Aleve] 220 mg PO DAILY 11/24/14 08/11/22 lisinopriL [Lisinopril] 15 mg PO DAILY 11/24/14 08/11/22 Brimonidine Tartrate/Timolol 1 drop LEFTEYE DAILY 10/06/15 08/11/22 [Combigan Eye Drops] traMADol [Ultram] 50 mg PO Q3HR PRN #30 tablet 08/04/19 08/11/22 Cefpodoxime Proxetil [Vantin] 200 mg PO Q12H #40 tablet 08/11/22 traMADol [Ultram] 50 mg PO Q4-6H PRN #10 tablet 08/11/22 - Allergies Allergies/Adverse Reactions: Allergies Allergy/AdvReac Type Severity Reaction Status Date / Time codeine AdvReac Itching Verified 08/11/22 19:43 oxycodone AdvReac mood Verified 08/11/22 19:43 changes, nausea - Social History Does the pt smoke?: No Smoking Status: Never smoker Does the pt drink ETOH?: Yes Does the pt have substance abuse?: No - Immunizations Immunizations are current?: No Immunizations: Other immun current - POLST Patient has POLST: No Results - Vitals Vitals: Vital Signs - 24 hr 08/11/22 08/11/22 19:44 21:45 Temperature 36.5 C 36.6 C Heart Rate 84 86 Respiratory 18 16 Rate Blood Pressure 142/80 H 123/60 O2 Saturation 100 96 Oxygen O2 Source Room air - Labs Labs: Laboratory Tests 08/11/22 19:42 Urine Color DARK YELLOW Urine Clarity HAZY Urine pH 7.0 Ur Specific [place] 1.020 Urine Protein >=300 H Urine Glucose (UA) 100 H Urine Ketones TRACE Urine Occult Blood LARGE H Urine Nitrite POSITIVE H Urine Bilirubin NEGATIVE Urine Urobilinogen >=8.0 H Ur Leukocyte Esterase TRACE H Urine RBC TNTC H Urine WBC 6-10 H Ur Squamous Epith Cells RARE Squamous Urine Bacteria Few Ur Microscopic Review INDICATED Urine Culture Comments INDICATED PD MEDICAL DECISION MAKING - ED course Complexity details: reviewed results, re-evaluated patient, considered differential, d/w patient, d/w family ED course: This is an 81-year-old male with a past medical history as noted above who presented with hematuria and bladder pain. He has a history of hematuria as well as a possible bladder mass for which she is followed by urology. He is otherwise well-appearing on physical exam with stable vital signs, is afebrile and has no flank pain, no nausea or vomiting. We obtained a urinalysis that is significant for blood as well as signs of infection. The patient no longer has a Vela catheter but is voiding okay and I do not suspect significant retention of his urine at this time as he feels like he is emptying his bladder. We will therefore Treat for urinary tract infection, he is previously had cefpodoxime which has worked well for the patient so we will do this pending urine culture. He was advised to stay well-hydrated and to follow-up with his urologist as scheduled or sooner if possible. If he has difficulty passing urine or if he has increasing clots, or signs of symptomatic anemia, he was advised to return to the ER. Patient did have some pain though this completely resolved by the time of his arrival to the ER. He was given 4 tablets of [place] to take home to use as needed and I did prescribe tramadol for pain, just 10 tablets until he sees his primary doctor. Departure - Departure Disposition: , Self Care Clinical Impression: Clot retention of urine UTI (urinary tract infection) Qualifiers: Urinary tract infection type: acute cystitis Hematuria presence: with hematuria Qualified Code(s): N30.01 - Acute cystitis with hematuria Condition: Good Instructions: ED UTI Cystitis Male Prescriptions: traMADol [Ultram] 50 mg PO Q4-6H PRN #10 tablet PRN Reason: Pain Cefpodoxime Proxetil [Vantin] 200 mg PO Q12H #40 tablet Comments: You presented with painful urination and blood in your urine. You do have a urinary tract infection. You have had problems with blood in urine in the past However at this time it does not appear there are any clots that are preventing her from urinating. If you are not able to pass urine, you will need to return to the hospital and we will have to reinsert the catheter. You should follow-up with your urologist as soon as possible for ongoing evaluation of your blood in urine. Discharge Date/Time: 08/11/22 21:45
[2022-08-11 19:57] LABS: BILIRUBIN,URINE NEGATIVE (NEGATIVE); GLUCOSE, URINE (UA) 100 mg/dL (NEGATIVE); KETONES,URINE (UA) TRACE mg/dL (NEGATIVE); LEUKOCYTE ESTERASE, URINE TRACE (NEGATIVE); NITRITE,URINE POSITIVE (NEGATIVE); OCCULT BLOOD,URINE LARGE (NEGATIVE); PROTEIN,URINE >=300 mg/dL (NEGATIVE); UROBILINOGEN,URINE >=8.0 E.U./dL (NORMAL)
[2022-08-11 20:02] LABS: CLARITY,URINE HAZY (CLEAR)
[2022-08-11 20:03] LABS: BACTERIA,URINE Few /HPF (None Seen); RBC,URINE TNTC /HPF (0-5); SQUAMOUS EPITHELIAL CELL,UR RARE Squamous (<= Few)
[2022-08-11] MEDS ORDERED: SODIUM CHLORIDE 0.9% 1,000 ML IV STA (20:04)
[2022-08-11] MEDS ORDERED: cefTRIAXone 1 GM in SODIUM CHLORIDE 0.9% MINIBAG 100 ML IV STA (20:04)
[2022-08-11] MEDS ORDERED: cefTRIAXone 1 GM VIAL ONE (20:12)
[2022-08-11 21:45] VITALS: BP 123/60
[2022-08-11] MEDS ORDERED: HYDROcod/ACET 5/325 Prepack 4 PO STA (21:47)
== END 2022-08-11 21:45 | disposition home or self-care (01) ==
LOC: EDUNIT# → ED 19:36
DX: R33.8 Other retention of urine (principal); N30.01 Acute cystitis with hematuria
CPT/HCPCS: 81001; 81003; 87086; 96365; 99283

== ENCOUNTER → 2022-08-11 | Outpatient (CLI) | payer MEDICARE, OTHER | END | disposition critical access hospital (66) | LOC: EMS 19:14 | DX: R30.9 Painful micturition, unspecified (principal); R31.9 Hematuria, unspecified; R39.89 Other symptoms and signs involving the genitourinary system | CPT/HCPCS: A0425; A0427 ==

== ENCOUNTER 2022-09-01 05:49 | Outpatient (CLI) | payer MEDICARE, OTHER | END 2022-09-01 05:50 | disposition critical access hospital (66) | LOC: EMS 05:49 | DX: K59.00 Constipation, unspecified (principal); R10.31 Right lower quadrant pain; R10.32 Left lower quadrant pain | CPT/HCPCS: A0425; A0429 ==

== ENCOUNTER 2022-09-01 06:13 | Emergency (ER) | payer MEDICARE, OTHER ==
--- NOTE | 2022-09-01 07:56 | ED Physician Documentation ---
PD HPI ABD PAIN - Stated complaint Stated Complaint: CONSTIPATION - Chief complaint Chief Complaint: Abd Pain - History obtained from History obtained from: Patient - History of Present Illness Timing - onset: How many days ago (several days of no stool/constipation after starting pain meds for bladder pain.) Timing - duration: Days (few) Timing - details: Gradual onset, Still present, Waxing and waning Quality: Cramping, Aching, Pain. No: Fullness/distended Improved by: BM (but only small firm amounts at times.) Associated symptoms: Nausea, Constipation. No: Fever, Vomiting, Diarrhea Similar symptoms before: Has not had sx before Recently seen: Clinic (Urology) Review of Systems Constitutional: denies: Fever, Chills Nose: denies: Rhinorrhea / runny nose, Congestion Throat: denies: Sore throat Respiratory: denies: Cough GI: reports: Abdominal Pain (lower abd cramping.), Nausea, Constipation. denies: Abdominal Swelling, Vomiting, Diarrhea : reports: Frequency, Hematuria Neurologic: reports: Generalized weakness. denies: Focal weakness, Numbness PD PAST MEDICAL HISTORY - Past Medical History Cardiovascular: Hypertension, High cholesterol Respiratory: None Neuro: Seizure disorder Endocrine/Autoimmune: None GI: Cholelithiasis : Kidney stones HEENT: Glaucoma, Chronic hearing loss Psych: None Musculoskeletal: Osteoarthritis Derm: None - Past Surgical History Past Surgical History: Yes General: Bowel surgery, Colonoscopy Ortho: Carpal Tunnel surgery - Present Medications Home Medications: Ambulatory Orders Medication Instructions Recorded Confirmed Aspirin [Aspir 81] 81 mg PO ONCE 11/24/14 08/11/22 Latanoprost 0.005% Ophth Drops 1 drops EACHEYE QPM 11/24/14 08/11/22 [Xalatan Ophth Drops] Naproxen Sodium [Aleve] 220 mg PO DAILY 11/24/14 08/11/22 lisinopriL [Lisinopril] 15 mg PO DAILY 11/24/14 08/11/22 Brimonidine Tartrate/Timolol 1 drop LEFTEYE DAILY 10/06/15 08/11/22 [Combigan Eye Drops] traMADol [Ultram] 50 mg PO Q3HR PRN #30 tablet 08/04/19 08/11/22 Cefpodoxime Proxetil [Vantin] 200 mg PO Q12H #40 tablet 08/11/22 traMADol [Ultram] 50 mg PO Q4-6H PRN #10 tablet 08/11/22 Phenazopyridine HCl [Pyridium] 100 mg PO BID #15 tablet 09/01/22 polyethylene glycoL 3350 [Miralax] 17 gm PO Q2H PRN #238 gm 09/01/22 - Allergies Allergies/Adverse Reactions: Allergies Allergy/AdvReac Type Severity Reaction Status Date / Time codeine AdvReac Itching Verified 08/11/22 19:43 oxycodone AdvReac mood Verified 08/11/22 19:43 changes, nausea - Social History Does the pt smoke?: No Smoking Status: Never smoker Does the pt drink ETOH?: Yes Does the pt have substance abuse?: No - Immunizations Immunizations are current?: No Immunizations: Other immun current - POLST Patient has POLST: No PD ED PE NORMAL - Vitals Vital signs reviewed: Yes - General General: Alert and oriented X 3, Well developed/nourished, Other (intermittent cramping lower abd. some tender in suprpubic area. Bladder does not feel distencded. ) - Neck Neck: Supple, no meningeal sign, No adenopathy - Cardiac Cardiac: RRR, No murmur - Respiratory Respiratory: Clear bilaterally - Abdomen Abdomen: Normal bowel sounds, Soft, Non distended, No organomegaly, Other - Male Male : Other (normal genital appearance. ) - Rectal Rectal: Other (no hemorrhoids nor tenderness at anus. There is moderate amount of soft stool in vault which is brown color. no impaction noted. ) - Derm Derm: Normal color, Warm and dry - Extremities Extremities: No edema, No calf tenderness / cord - Neuro Neuro: Alert and oriented X 3, No motor deficit, Normal speech Results - Vitals Vitals: Vital Signs - 24 hr 09/01/22 09/01/22 09/01/22 06:18 08:00 12:00 Temperature 37.1 C Heart Rate 95 94 66 Respiratory 18 24 20 Rate Blood Pressure 131/79 H 116/77 112/65 O2 Saturation 100 98 94 Oxygen O2 Source Room air - Labs Labs: Laboratory Tests 09/01/22 09/01/22 09/01/22 08:18 08:18 09:35 WBC 7.9 RBC 3.38 L Hgb 10.0 L Hct 30.9 L MCV 91.4 MCH 29.6 MCHC 32.4 RDW 12.8 Plt Count 299 MPV 8.9 Neut # (Auto) 6.0 Lymph # (Auto) 1.1 L [place] # (Auto) 0.8 Eos # (Auto) 0.0 Baso # (Auto) 0.0 Absolute Nucleated RBC 0.00 Nucleated RBC % 0.0 Sodium 135 Potassium 4.2 Chloride 106 Carbon Dioxide 18 L Anion Gap 11.0 BUN 33 H Creatinine 1.4 H Estimated GFR (MDRD) 49 L Glucose 115 H Calcium 9.3 Total Bilirubin 0.8 AST 26 ALT 30 Alkaline Phosphatase 85 Total Protein 7.2 Albumin 3.3 Globulin 3.9 Albumin/Globulin Ratio 0.8 L Lipase 27 Urine Color BROWN Urine Clarity CLOUDY Urine pH 5.5 Ur Specific [place] 1.025 Urine Protein 100 H Urine Glucose (UA) NEGATIVE Urine Ketones TRACE Urine Occult Blood LARGE H Urine Nitrite NEGATIVE Urine Bilirubin NEGATIVE Urine Urobilinogen 0.2 (NORMAL) Ur Leukocyte Esterase NEGATIVE Urine RBC TNTC H Urine WBC >25 H Ur Squamous Epith Cells RARE Squamous Urine Bacteria Rare Ur Microscopic Review INDICATED Urine Culture Comments NOT INDICATED PD Medical Decision Making - ED course Complexity details: re-evaluated patient (he did not have much stool out as yet but is having minimal cramping pains now. ), considered differential (having lower abd pain and cramps with frequency of urine. Constipated with pO pain meds. ), d/w patient Departure - Departure Disposition: 01 Home, Self Care Clinical Impression: Lower abdominal pain, Constipation, Hematuria Condition: Stable Record reviewed to determine appropriate education?: Yes Instructions: ED Constipation Prescriptions: polyethylene glycoL 3350 [Miralax] 17 gm PO Q2H PRN #238 gm PRN Reason: Constipation Phenazopyridine HCl [Pyridium] 100 mg PO BID #15 tablet Comments: Your urine sample does have blood in it suggesting irritation in the bladder. No signs of infection at this time. Some of your lower pains and the pain with urinating likely result from the irritation. Continue your tamsulosin to help with prostate size reduction. We could add phenazopyridine twice daily to help with numbing the bladder and urethra to help with some of your symptoms. Regarding your constipation, that can happen with the pain medication such as hydrocodone. Continue with the docusate stool softener. For pain you could use Tylenol without the opioid every 4-6 hours if needed for pains and then just episodically the hydrocodone if needed. For the constipation acutely, I would suggest the MiraLAX laxative taking a dose every 1-2 hours through the day today until you have loose bowel movement. This typically will result in improvement in the constipation. I sent your prescriptions to [facility] pharmacy. Discharge Date/Time: 09/01/22 12:32
[2022-09-01] MEDS ORDERED: KETOROLAC 30 MG/ML VIAL IM STA (08:11)
[2022-09-01] MEDS ORDERED: LACTULOSE 10 GM /15 ML UDC PO STA (08:12)
[2022-09-01] MEDS ORDERED: BISACODYL 10 MG SUPP PR STA (08:12)
[2022-09-01] MEDS ORDERED: HYDROmorphone 1 MG/ML CARPUJECT IM STA (08:12)
[2022-09-01 08:25] LABS: BASOPHILS % (AUTO) 0.1 %; EOSINOPHILS % (AUTO) 0.5 %; HCT - HEMATOCRIT 30.9 % (42.0-52.0); LYMPHOCYTES # (AUTO) 1.1 10^3/uL (1.5-3.5); LYMPHOCYTES % (AUTO) 13.3 %; MEAN CORPUSCULAR HEMOGLOBIN 29.6 pg (27.0-31.0); MEAN CORPUSCULAR HGB CONC 32.4 g/dL (32.0-36.0); MEAN CORPUSCULAR VOLUME 91.4 fL (80.0-94.0); MEAN PLATELET VOLUME 8.9 fL (7.4-11.4); MONOCYTES # (AUTO) 0.8 10^3/uL (0.0-1.0); PLT - PLATELET COUNT 299 10^3/uL (130-450); RED BLOOD COUNT 3.38 10^6/uL (4.70-6.10); RED CELL DISTRIBUTION WIDTH 12.8 % (12.0-15.0); WHITE BLOOD COUNT 7.9 x10^3/uL (4.8-10.8)
[2022-09-01 08:39] LABS: ALBUMIN 3.3 g/dL (3.2-5.5); ALBUMIN/GLOBULIN RATIO 0.8 (1.0-2.2); BILIRUBIN,TOTAL 0.8 mg/dL (0.2-1.0); CALCIUM 9.3 mg/dL (8.5-10.3); CREATININE 1.4 mg/dL (0.6-1.2); POTASSIUM 4.2 mmol/L (3.5-5.0); TOTAL PROTEIN 7.2 g/dL (6.7-8.2)
[2022-09-01 10:10] LABS: GLUCOSE, URINE (UA) NEGATIVE (NEGATIVE); KETONES,URINE (UA) TRACE mg/dL (NEGATIVE); LEUKOCYTE ESTERASE, URINE NEGATIVE (NEGATIVE); NITRITE,URINE NEGATIVE (NEGATIVE); OCCULT BLOOD,URINE LARGE (NEGATIVE); PH,URINE 5.5 PH (5.0-7.5); PROTEIN,URINE 100 mg/dL (NEGATIVE); UROBILINOGEN,URINE 0.2 (NORMAL) E.U./dL (NORMAL)
[2022-09-01 10:32] LABS: BILIRUBIN,URINE NEGATIVE (NEGATIVE); CLARITY,URINE CLOUDY (CLEAR); ICTOTEST,URINE NEGATIVE; WBC,URINE >25 /HPF (0-3)
[2022-09-01 10:33] LABS: BACTERIA,URINE Rare /HPF (None Seen); RBC,URINE TNTC /HPF (0-5); SQUAMOUS EPITHELIAL CELL,UR RARE Squamous (<= Few)
[2022-09-01 12:32] VITALS: BP 112/65
== END 2022-09-01 12:32 | disposition home or self-care (01) ==
LOC: EDUNIT# → EDBD → ED 06:13
DX: K59.00 Constipation, unspecified (principal); R10.30 Lower abdominal pain, unspecified; R31.9 Hematuria, unspecified
CPT/HCPCS: 36415; 51798; 80053; 81001; 83690; 85025; 96372; 99283; 99284; A9270; J1170; 81003; 87086

== ENCOUNTER 2022-09-03 03:16 | Outpatient (CLI) | payer MEDICARE, OTHER | END 2022-09-03 03:17 | disposition critical access hospital (66) | LOC: EMS 03:16 | DX: R10.32 Left lower quadrant pain (principal); R10.814 Left lower quadrant abdominal tenderness; K59.00 Constipation, unspecified | CPT/HCPCS: A0425; A0429 ==

== ENCOUNTER 2022-09-03 03:35 | Emergency (ER) | payer MEDICARE, OTHER ==
--- NOTE | 2022-09-03 04:28 | ED Physician Documentation ---
History of Present Illness - Stated complaint Stated Complaint: CONSTIPATION - Chief complaint Chief Complaint: Abd Pain - History obtained from History obtained from: Patient - Additonal information Additional information: 81yM with recent ed visit for constipation, on narcotic pain meds for bladder pain, p/w persistent constipation and lower abdominal cramping keeping him up all night from sleeping. denies fever, nausea, or other symptoms. Review of Systems Ten Systems: 10 systems reviewed and negative Constitutional: denies: Fever GI: reports: Abdominal Pain, Constipation. denies: Nausea, Vomiting, Bloody / black stool PD PAST MEDICAL HISTORY - Past Medical History Cardiovascular: Hypertension, High cholesterol Respiratory: None Neuro: Seizure disorder Endocrine/Autoimmune: None GI: Cholelithiasis : Kidney stones HEENT: Glaucoma, Chronic hearing loss Psych: None Musculoskeletal: Osteoarthritis Derm: None - Past Surgical History Past Surgical History: Yes General: Bowel surgery, Colonoscopy Ortho: Carpal Tunnel surgery - Present Medications Home Medications: Ambulatory Orders Medication Instructions Recorded Confirmed Aspirin [Aspir 81] 81 mg PO ONCE 11/24/14 08/11/22 Latanoprost 0.005% Ophth Drops 1 drops EACHEYE QPM 11/24/14 08/11/22 [Xalatan Ophth Drops] Naproxen Sodium [Aleve] 220 mg PO DAILY 11/24/14 08/11/22 lisinopriL [Lisinopril] 15 mg PO DAILY 11/24/14 08/11/22 Brimonidine Tartrate/Timolol 1 drop LEFTEYE DAILY 10/06/15 08/11/22 [Combigan Eye Drops] traMADol [Ultram] 50 mg PO Q3HR PRN #30 tablet 08/04/19 08/11/22 Cefpodoxime Proxetil [Vantin] 200 mg PO Q12H #40 tablet 08/11/22 traMADol [Ultram] 50 mg PO Q4-6H PRN #10 tablet 08/11/22 Phenazopyridine HCl [Pyridium] 100 mg PO BID #15 tablet 09/01/22 polyethylene glycoL 3350 [Miralax] 17 gm PO Q2H PRN #238 gm 09/01/22 Oxybutynin Chloride [Ditropan Xl] 5 mg PO QDAC #30 tab 09/03/22 - Allergies Allergies/Adverse Reactions: Allergies Allergy/AdvReac Type Severity Reaction Status Date / Time codeine AdvReac Itching Verified 08/11/22 19:43 oxycodone AdvReac mood Verified 08/11/22 19:43 changes, nausea - Social History Does the pt smoke?: No Smoking Status: Never smoker Does the pt drink ETOH?: Yes Does the pt have substance abuse?: No - Immunizations Immunizations are current?: No Immunizations: Other immun current - POLST Patient has POLST: No PD ED PE NORMAL - Vitals Vital signs reviewed: Yes - General General: Alert and oriented X 3, No acute distress, Well developed/nourished - HEENT HEENT: Atraumatic, PERRL, EOMI - Abdomen Abdomen: Non tender, Non distended - Male Male : Fraud Manager present (ALISA Rayo), Other (brown stool in vault) - Derm Derm: Normal color, Warm and dry - Neuro Neuro: No motor deficit, No sensory deficit - Psych Psych: Normal mood, Normal affect Results - Vitals Vitals: Vital Signs - 24 hr 09/03/22 09/03/22 09/03/22 03:41 05:58 07:00 Temperature 36.8 C Heart Rate 89 86 84 Respiratory 18 18 18 Rate Blood Pressure 128/68 145/70 H 124/85 H O2 Saturation 100 98 100 Oxygen O2 Source Room air - Labs Labs: Laboratory Tests 09/03/22 09/03/22 09/03/22 06:06 06:06 06:15 WBC 7.7 RBC 3.26 L Hgb 9.7 L Hct 30.1 L MCV 92.3 MCH 29.8 MCHC 32.2 RDW 12.8 Plt Count 283 MPV 8.7 Neut # (Auto) 5.6 Lymph # (Auto) 1.2 L [place] # (Auto) 0.8 Eos # (Auto) 0.1 Baso # (Auto) 0.0 Absolute Nucleated RBC 0.00 Nucleated RBC % 0.0 Sodium 135 Potassium 4.5 Chloride 103 Carbon Dioxide 21 Anion Gap 11.0 BUN 50 H Creatinine 1.6 H Estimated GFR (MDRD) 42 L Glucose 116 H Calcium 9.4 Total Bilirubin 0.7 AST 20 ALT 27 Alkaline Phosphatase 87 Total Protein 7.1 Albumin 3.2 Globulin 3.9 Albumin/Globulin Ratio 0.8 L Lipase 36 Urine Color BROWN Urine Clarity [place]. CLOUDY Urine pH 6.0 Ur Specific [place] 1.025 Urine Protein 100 H Urine Glucose (UA) NEGATIVE Urine Ketones NEGATIVE Urine Occult Blood LARGE H Urine Nitrite NEGATIVE Urine Bilirubin NEGATIVE Urine Urobilinogen 0.2 (NORMAL) Ur Leukocyte Esterase NEGATIVE Urine RBC TNTC H Urine WBC 6-10 H Ur Squamous Epith Cells RARE Squamous Urine Bacteria Moderate H Ur Microscopic Review INDICATED Urine Culture Comments NOT INDICATED PD Medical Decision Making - ED course ED course: 81yM presented with constipation over the past several days since taking narcotic pain medicine for bladder pain. Rectal exam performed and several pieces of stool were extracted before introducing mineral oil enema. patient then c/o persistent pain therefore decision was made to obtain new bloodwork and undergo CT. CT showed bladder mass and pulmonary nodules. d/w patient who is already aware and will f/u with urology. suspect symptoms are related to bladder spasm in addition to bloating/constipation. plan to c/w stool regimen at home and to start oxybutynin antispasmotic. return precautions given. Departure - Departure Disposition: Home, Self Care Clinical Impression: Constipation, Bladder mass Condition: Stable Instructions: ED Constipation, Oxybutynin tablets Follow-Up: Juanita Duffy MD [Physician No Access] - Prescriptions: Oxybutynin Chloride [Ditropan Xl] 5 mg PO QDAC #30 tab Comments: Prescription for oxybutynin, a bladder spasm medicine, sent electronically [facility]. Please follow-up with urology outpatient and return to the emergency department if you have any new or worsening symptoms or other concerns.
[2022-09-03] MEDS ORDERED: SODIUM CHLORIDE 0.9% 1,000 ML IV STA (05:58)
[2022-09-03] MEDS ORDERED: ONDANSETRON 4 MG/2 ML VIAL IVP STA (05:58)
[2022-09-03] MEDS ORDERED: KETOROLAC 15 MG/ML VIAL IVP STA (05:58)
[2022-09-03 06:15] LABS: BASOPHILS % (AUTO) 0.3 %; EOSINOPHILS # (AUTO) 0.1 10^3/uL (0.0-0.7); EOSINOPHILS % (AUTO) 1.8 %; HCT - HEMATOCRIT 30.1 % (42.0-52.0); HGB - HEMOGLOBIN 9.7 g/dL (14.0-18.0); LYMPHOCYTES # (AUTO) 1.2 10^3/uL (1.5-3.5); LYMPHOCYTES % (AUTO) 15.2 %; MEAN CORPUSCULAR HEMOGLOBIN 29.8 pg (27.0-31.0); MEAN CORPUSCULAR HGB CONC 32.2 g/dL (32.0-36.0); MEAN CORPUSCULAR VOLUME 92.3 fL (80.0-94.0); MEAN PLATELET VOLUME 8.7 fL (7.4-11.4); MONOCYTES # (AUTO) 0.8 10^3/uL (0.0-1.0); MONOCYTES % (AUTO) 10.5 %; NEUTROPHILS # (AUTO) 5.6 10^3/uL (1.5-6.6); NEUTROPHILS % (AUTO) 71.8 %; PLT - PLATELET COUNT 283 10^3/uL (130-450); RED BLOOD COUNT 3.26 10^6/uL (4.70-6.10); RED CELL DISTRIBUTION WIDTH 12.8 % (12.0-15.0); WHITE BLOOD COUNT 7.7 x10^3/uL (4.8-10.8)
[2022-09-03] MEDS ORDERED: iohexoL-300 100 ML VIAL ONE (06:21)
[2022-09-03 06:24] LABS: ALBUMIN 3.2 g/dL (3.2-5.5); ALBUMIN/GLOBULIN RATIO 0.8 (1.0-2.2); BILIRUBIN,TOTAL 0.7 mg/dL (0.2-1.0); CALCIUM 9.4 mg/dL (8.5-10.3); CREATININE 1.6 mg/dL (0.6-1.2); POTASSIUM 4.5 mmol/L (3.5-5.0); TOTAL PROTEIN 7.1 g/dL (6.7-8.2)
[2022-09-03] MEDS ORDERED: iohexoL-300 100 ML VIAL IVP ONE (07:07)
[2022-09-03 07:19] LABS: BILIRUBIN,URINE NEGATIVE (NEGATIVE); GLUCOSE, URINE (UA) NEGATIVE (NEGATIVE); KETONES,URINE (UA) NEGATIVE (NEGATIVE); LEUKOCYTE ESTERASE, URINE NEGATIVE (NEGATIVE); NITRITE,URINE NEGATIVE (NEGATIVE); OCCULT BLOOD,URINE LARGE (NEGATIVE); PROTEIN,URINE 100 mg/dL (NEGATIVE); UROBILINOGEN,URINE 0.2 (NORMAL) E.U./dL (NORMAL)
[2022-09-03 07:27] LABS: CLARITY,URINE SL. CLOUDY (CLEAR)
[2022-09-03 07:40] LABS: BACTERIA,URINE Moderate /HPF (None Seen); RBC,URINE TNTC /HPF (0-5); SQUAMOUS EPITHELIAL CELL,UR RARE Squamous (<= Few)
--- NOTE | 2022-09-03 08:05 | CT Report ---
PROCEDURE: ABDOMEN/PELVIS W INDICATIONS: LLQ Abdominal pain, diverticulitis suspected CONTRAST: 100 ML OMNI 300 TECHNIQUE: After the administration of IV contrast, 5 mm thick sections acquired from the diaphragms to the symp hysis. 5 mm thick coronal and sagittal reformats were acquired. For radiation dose reduction, the f ollowing was used: automated exposure control, adjustment of mA and/or kV according to patient size. COMPARISON: 05/22/2022, 07/01/2019 FINDINGS: Image quality: Excellent. ABDOMEN: Lung bases: Within the right middle lobe, there is a subpleural ovoid nodule seen, as on series 4 omid ge 16 measuring 9 mm, which is similar to the prior. Focal pleural thickening can be seen along the r ight oblique fissure, as on series 4 image 1, measuring 6 mm. This is off of the [id number] of the prior study, although it is unchanged compared to 07/01/2019. Heart size is normal. Solid organs: Liver and spleen are normal in size and enhancement. Incidental note is made of focal fatty infiltration adjacent to the falciform ligament, which is not regarded to the frankly pathologi c. Gallbladder has been removed. Biliary system is non dilated. Pancreas enhances normally. No adrenal nodules. Kidneys demonstrate normal size and enhancement, without hydronephrosis. A nonenha ncing low-density 2.5 cm right renal cyst can be seen. There is a nonobstructing 2 mm right-sided kid pura stone, as on series 3 image 37. An additional nonobstructing 2 mm right-sided kidney stone is see n on series 3 image 40. Peritoneum and bowel: Bowel loops demonstrate normal wall thickness and caliber. No free fluid or a ir. Nodes and vessels: No retroperitoneal or mesenteric adenopathy by size criteria. Aorta and inferior vena cava are normal in size. Atherosclerotic calcification is seen. Miscellaneous: No ventral hernias. PELVIS: Genitourinary: Prominent lateral thickening can be seen superiorly, as on series 7 image 38, measurin g greater than 3 cm in thickness. Miscellaneous: There is an ovoid nodule seen medial to the right external iliac artery and vein, as on series 3 image 64 measuring 2.6 x 1.6 cm. An additional apparent borderline prominent lymph nodes can be seen on series 3 image 66 measuring 12 x 8 mm. No inguinal adenopathy. A left-sided fat-conta ining inguinal hernia is seen. Bones: No suspicious bony lesions. There is a remote, stable T11 anterior deformity. Focal L4-L5 deg enerative change is seen. Milder degenerative changes are seen elsewhere. IMPRESSION: Prominent bladder wall thickening is again seen superiorly. Neoplasm is suspected, although cystitis versus clot are possible. Please consider follow-up cystoscopy. 2.6 cm presumed abnormal lymph node seen involving the right external iliac chain. An additional smal ler 1.2 cm lymph node is also seen. Additional findings: Stable right lower lung nodules Cholecystectomy Simple appearing right renal cyst Nonobstructing right-sided kidney stones. Remote, stable T11 anterior wedge deformity Focal L4-L5 degenerative change Fat-containing left inguinal hernia Note: No significant discrepancy from the preliminary report. Reviewed by: Bhavesh Matos MD on 09/03/2022 7:04 AM [facility] Approved by: Bhavesh Matos MD on 09/03/2022 7:04 AM [facility] Station ID: [id number]
[2022-09-03 08:11] VITALS: BP 124/85
== END 2022-09-03 07:52 | disposition home or self-care (01) ==
LOC: EDUNIT# → ED 03:35
DX: K59.00 Constipation, unspecified (principal); N32.89 Other specified disorders of bladder; R91.8 Other nonspecific abnormal finding of lung field
CPT/HCPCS: 36415; 74177; 80053; 81001; 83690; 85025; 96361; 96374; 96375; 99283; 99284; Q9967; 81003; 87086

== ENCOUNTER 2022-09-19 09:51 | Emergency (ER) | payer MEDICARE, OTHER ==
--- NOTE | 2022-09-19 11:44 | ED Physician Documentation ---
PD HPI ABD PAIN - Stated complaint Stated Complaint: MALE - Chief complaint Chief Complaint: Abd Pain - History obtained from History obtained from: Patient - Additional information Additional information: This is an 81-year-old gentleman who presents for the evaluation of constipation. He is very frustrated he has not had a bowel movement in about 5 days. He has a known bladder tumor and because of capacity issues has not been able to see urology yet but has an appointment next week finally. He has been taking MiraLAX, prune juice, stool softeners without relief. Review of Systems Constitutional: reports: Weight Loss (50 pounds this year). denies: Fever, Chills GI: reports: Abdominal Pain, Constipation. denies: Nausea, Vomiting, Hematemesis PD PAST MEDICAL HISTORY - Past Medical History Cardiovascular: Hypertension, High cholesterol Respiratory: None Neuro: Seizure disorder Endocrine/Autoimmune: None GI: Cholelithiasis : Kidney stones HEENT: Glaucoma, Chronic hearing loss Psych: None Musculoskeletal: Osteoarthritis Derm: None - Past Surgical History Past Surgical History: Yes General: Bowel surgery, Colonoscopy Ortho: Carpal Tunnel surgery - Present Medications Home Medications: Ambulatory Orders Medication Instructions Recorded Confirmed Aspirin [Aspir 81] 81 mg PO ONCE 11/24/14 09/19/22 Latanoprost 0.005% Ophth Drops 1 drops EACHEYE QPM 11/24/14 09/19/22 [Xalatan Ophth Drops] Naproxen Sodium [Aleve] 220 mg PO DAILY 11/24/14 09/19/22 lisinopriL [Lisinopril] 15 mg PO DAILY 11/24/14 09/19/22 Brimonidine Tartrate/Timolol 1 drop LEFTEYE DAILY 10/06/15 09/19/22 [Combigan Eye Drops] traMADol [Ultram] 50 mg PO Q3HR PRN #30 tablet 08/04/19 09/19/22 Cefpodoxime Proxetil [Vantin] 200 mg PO Q12H #40 tablet 08/11/22 09/19/22 traMADol [Ultram] 50 mg PO Q4-6H PRN #10 tablet 08/11/22 09/19/22 Phenazopyridine HCl [Pyridium] 100 mg PO BID #15 tablet 09/01/22 09/19/22 polyethylene glycoL 3350 [Miralax] 17 gm PO Q2H PRN #238 gm 09/01/22 09/19/22 Oxybutynin Chloride [Ditropan Xl] 5 mg PO QDAC #30 tab 09/03/22 09/19/22 Lactulose 0 ml PO QID #240 ml 09/19/22 Peg 3350/Na Sulf,Bicarb,Cl/KCl 4,000 ml PO ONCE 1 Days #1 each 09/19/22 [Golytely] - Allergies Allergies/Adverse Reactions: Allergies Allergy/AdvReac Type Severity Reaction Status Date / Time codeine AdvReac Itching Verified 09/19/22 09:59 oxycodone AdvReac mood Verified 09/19/22 09:59 changes, nausea - Social History Does the pt smoke?: No Smoking Status: Never smoker Does the pt drink ETOH?: Yes Does the pt have substance abuse?: No - Immunizations Immunizations are current?: No Immunizations: Other immun current - POLST Patient has POLST: No PD ED PE NORMAL - Vitals Vital signs reviewed: Yes - General General: Alert and oriented X 3, No acute distress - Abdomen Abdomen: Other (Distended but soft and nontender without surgical signs.) - Rectal Rectal: Other (On rectal examination he has a fairly tight anal sphincter, no stool in the vault. An enema was placed during initial evaluation.) - Back Back: No CVA TTP, No spinal TTP - Derm Derm: Normal color, Warm and dry - Neuro Neuro: Alert and oriented X 3, Normal speech Results - Vitals Vitals: Vital Signs - 24 hr 09/19/22 09/19/22 09/19/22 09:55 12:38 14:35 Temperature 36.2 C L Heart Rate 113 H 97 101 H Respiratory 20 17 18 Rate Blood Pressure 129/101 H 141/96 H 121/100 H O2 Saturation 95 95 96 Oxygen O2 Source Room air - Labs Labs: Laboratory Tests 09/19/22 09/19/22 13:17 13:17 WBC 12.9 H RBC 3.94 L Hgb 11.6 L Hct 36.3 L MCV 92.1 MCH 29.4 MCHC 32.0 RDW 13.5 Plt Count 284 MPV 9.0 Neut # (Auto) 11.0 H Lymph # (Auto) 0.9 L Blackford # (Auto) 0.9 Eos # (Auto) 0.0 Baso # (Auto) 0.0 Absolute Nucleated RBC 0.00 Nucleated RBC % 0.0 Sodium 131 L Potassium 4.8 Chloride 101 Carbon Dioxide 16 L Anion Gap 14.0 H BUN 68 H Creatinine 2.0 H Estimated GFR (MDRD) 32 L Glucose 131 H Calcium 9.7 Total Bilirubin 0.9 AST 16 ALT 15 Alkaline Phosphatase 164 H Total Protein 7.7 Albumin 3.6 Globulin 4.1 Albumin/Globulin Ratio 0.9 L PD Medical Decision Making - ED course ED course: 81-year-old gentleman presents with lower abdominal pain and sensation of constipation. He has had significant weight loss and looking at the chart probably has bladder cancer. 2 enemas and he had minimal stool output so will CT to clarify the diagnosis. 81-year-old gentleman presents with constipation. No stool within fingers reach and no output with a enema. As such he was taken over for CT scan which unfortunately shows evidence of likely metastatic disease. He was so informed and has appropriate follow-up. Departure - Departure Disposition: 01 Home, Self Care Clinical Impression: Constipation Qualifiers: Constipation type: unspecified constipation type Qualified Code(s): K59.00 - Constipation, unspecified Condition: Good Record reviewed to determine appropriate education?: Yes Instructions: ED Constipation Prescriptions: Peg 3350/Na Sulf,Bicarb,Cl/KCl [Golytely] 4,000 ml PO ONCE 1 Days #1 each Lactulose 0 ml PO QID #240 ml Comments: I am prescribing to strong laxatives which you can take up to 4 times a day until you are cleaned out. You are seen today for constipation, unfortunately a repeat CAT scan also showed worsening of likely bladder cancer with metastases. I will send Dr. Gayle Munoz note about this but you do also need to see the urologist as scheduled. Return for new or worsening symptoms.
[2022-09-19 13:29] LABS: BASOPHILS % (AUTO) 0.1 %; EOSINOPHILS % (AUTO) 0.2 %; HCT - HEMATOCRIT 36.3 % (42.0-52.0); HGB - HEMOGLOBIN 11.6 g/dL (14.0-18.0); LYMPHOCYTES # (AUTO) 0.9 10^3/uL (1.5-3.5); MEAN CORPUSCULAR HEMOGLOBIN 29.4 pg (27.0-31.0); MEAN CORPUSCULAR VOLUME 92.1 fL (80.0-94.0); MONOCYTES # (AUTO) 0.9 10^3/uL (0.0-1.0); MONOCYTES % (AUTO) 6.7 %; NEUTROPHILS % (AUTO) 85.2 %; PLT - PLATELET COUNT 284 10^3/uL (130-450); RED BLOOD COUNT 3.94 10^6/uL (4.70-6.10); RED CELL DISTRIBUTION WIDTH 13.5 % (12.0-15.0); WHITE BLOOD COUNT 12.9 x10^3/uL (4.8-10.8)
[2022-09-19 13:38] LABS: ALBUMIN 3.6 g/dL (3.2-5.5); ALBUMIN/GLOBULIN RATIO 0.9 (1.0-2.2); BILIRUBIN,TOTAL 0.9 mg/dL (0.2-1.0); CALCIUM 9.7 mg/dL (8.5-10.3); POTASSIUM 4.8 mmol/L (3.5-5.0); TOTAL PROTEIN 7.7 g/dL (6.7-8.2)
[2022-09-19] MEDS ORDERED: SODIUM CHLORIDE 0.9% 1,000 ML IV STA (13:49)
[2022-09-19] MEDS ORDERED: iohexoL-300 100 ML VIAL IVP ONE (14:54)
--- NOTE | 2022-09-19 15:09 | CT Report ---
PROCEDURE: ABDOMEN/PELVIS W INDICATIONS: IV only, abd pain, no BM CONTRAST: 100ml Omnipaque 300 TECHNIQUE: After the administration of intravenous contrast, 5 mm thick sections acquired from the diaphragms to the symphysis. 5 mm thick coronal and sagittal reformats were acquired. For radiation dose reducti on, the following was used: automated exposure control, adjustment of mA and/or kV according to caitie ent size. COMPARISON: CT abdomen and pelvis 09/03/2022, 05/22/2022. FINDINGS: Image quality: Excellent. ABDOMEN: Lung bases: Several small pulmonary nodules. For example: -Left upper lobe 1.1 cm, (5/5). -Left lower lobe 0.8 cm, (5/8), previously 0.6 cm. -Right middle lobe 0.6 cm, (5/7), previously 0.7 cm. No pleural effusion. Heart size is normal. Solid organs: Hypodensity in the right lobe of the liver, (4/14), not confirmed on the prior CT. Ther e are a few additional small hypodensities in liver which are unchanged. Gallbladder is absent. Carlos Alberto iary system is non dilated. Pancreas enhances normally. No adrenal nodules. There is asymmetric decreased enhancement of the left kidney compared to the right. This was not seen on the prior CT. There is mild left hydroureteronephrosis, slightly increased. No right hydronephros is. Small nonobstructing right kidney stones. Benign small right renal cyst. Peritoneum and bowel: Distal colonic anastomosis. Diverticulosis. Apparent stool in the transverse an d right colon. Normal appendix. No small bowel obstruction. Nodes and vessels: No retroperitoneal or mesenteric adenopathy by size criteria. Aorta and inferior vena cava are normal in size. Miscellaneous: No ventral hernias. Rectus diastases. PELVIS: Genitourinary: Bladder wall thickening. Increased density in the bladder. Miscellaneous: -Right external iliac node measuring 1.6 cm, (4/64), previously 1.5 cm, not seen on 05/22/2022. -Right external iliac node measuring 1.7 cm, (4/60), previously 1.4 cm, and previously not seen. -Left pelvic sidewall node measuring 1.2 cm, (4/68), previously 0.9 cm, previously not seen. Bones: No suspicious bony lesions. Minimal height loss at T11, unchanged. Schmorl's nodes. IMPRESSION: 1. Left kidney mild to moderate hydronephrosis, slightly increased. Decreased enhancement of the left kidney compared to the right likely due to the hydronephrosis. Obstruction at the level of the bladd er. 2. Diffuse bladder wall thickening with increased intraluminal density. This could be due to blood pr oducts with likely bladder cancer. 3. Pelvic adenopathy is stable to slightly increased. Suspect metastatic disease. 4. New hypodensity in the liver is indeterminate. 5. Several pulmonary nodules are suspicious for metastatic disease. -Recommend CT of the chest for further evaluation. 6. Increased stool in the colon likely due to constipation. Reviewed by: Harman Gomez MD on 09/19/2022 3:07 PM [facility] Approved by: Harman Gomez MD on 09/19/2022 3:07 PM PST Station ID: [id number]
[2022-09-19 15:39] VITALS: BP 116/75
== END 2022-09-19 15:43 | disposition home or self-care (01) ==
LOC: ED 09:51
DX: K59.00 Constipation, unspecified (principal); D49.4 Neoplasm of unspecified behavior of bladder; I10 Essential (primary) hypertension
CPT/HCPCS: 36415; 80053; 85025; 96360; 99284

== ENCOUNTER 2022-09-21 14:53 | Outpatient (CLI) | payer MEDICARE, OTHER ==
--- NOTE | 2022-09-21 16:30 | CT Report ---
PROCEDURE: CHEST WO INDICATIONS: ABN LUNG IMAGING TECHNIQUE: Noncontrast 1mm axial images were acquired from the pulmonary apices to the posterior costophrenic an gles. Axial 5 mm soft tissue kernel reconstructions were performed as well as 8 mm axial MIP and cor onal and sagittal 5 mm reformations. For radiation dose reduction, the following was used: automate d exposure control, adjustment of mA and/or kV according to patient size. COMPARISON: CT of abdomen and pelvis dated 09/19/2022 and 09/03/2022. FINDINGS: Image quality: Excellent. Lungs and pleura: 2 mm calcified granuloma is seen in right apex. Series 4 image 33. 2 mm solid nodule is seen in posterior left apex series 4 image 33. 1.1 x 1 cm solid nodule adjacent to medial pleura of long right apex series 4 image 47. 2 mm solid nodule is seen in posterior right upper lobe series 4 image 71. 2 mm solid nodule in posterior lateral left upper lobe series 4 image 69. 1.1 x 0.7 cm slightly spiculated and lobulated nodule in anterior left upper lobe series 4 image 82. 1 cm nodule with spiculated margins noted in anterior medial right upper lobe series 4 image 98. 4 mm solid nodule in anterior right upper lobe series 4 image 103. 2 mm solid nodule in anterior right upper lobe series 4 image 110. 7 mm solid nodule in medial left upper lobe series 4 image 112. 1.3 and 1.1 cm solid nodules with mildly spiculated margin are noted adjacent to anterolateral pleura of right upper lobe series 4 image 147. 1 cm solid nodule is seen adjacent to posterior lateral pleura of left lower lobe series 4 image 154. 1.2 cm solid nodule in anterior right upper lobe series 4 image 162. 7 mm solid nodule in lateral right upper lobe series 4 image 167. 1.1 cm pleural based solid nodule in posterior medial right middle lobe series 4 image 205. 7 mm solid nodule in the anterolateral right middle lobe series 4 image 218 4 mm solid nodule in lateral right lung base series 4 image 256. 6 mm solid nodule in posterior left lower lobe series 4 image 270. 6 mm solid nodule in central left lower lobe series 4 image 243. 1 cm solid nodule in anterolateral left lower lobe series 4 image 190. 1.4 x 1.3 cm solid nodule adjacent to lateral pleura of left upper lobe series 4 image 174. No pleural effusions or pneumothorax. Central and peripheral airways are patent and normal in calibe r. Mediastinum: Heart size is normal. No pericardial effusion. No mediastinal adenopathy by size crit eria. Subcentimeter lymph nodes are seen in mediastinum measures up to 5 mm in size in left paratrac heal space. Thoracic aorta and central pulmonary arteries are normal in size. Esophagus is normal in caliber. No hiatal hernia. Bones and chest wall: No suspicious bony lesions. No vertebral body compression fractures. No axil marcelo or supraclavicular adenopathy by size criteria. The thyroid is normal in size and there are no incidental findings. Abdomen: Visualized upper abdominal solid organs and bowel loops appear normal in the absence of con trast. IMPRESSION: 1. Numerous solid appearing nodules scattered throughout bilateral lung chong as described in detail above with the largest nodule measures up to 1.4 x 1.3 cm in size in lateral femoral and left upper lobe with mildly spiculated margin. Finding is highly suggestive of metastatic lung disease. No pleur al effusion or pneumothorax. Airway is patent. Some of the nodules are amenable to CT-guided biopsy. PET/CT scan can also be done for further evaluation. 2. No mediastinal or hilar lymphadenopathy by size criteria. CLINICAL RECOMMENDATION STATEMENTS: In patients <35 years with an ITN detected on CT, MRI, or extrathyroidal ultrasound, the Committee re commends further evaluation with dedicated thyroid ultrasound if the nodule is "e1 cm and has no susp icious imaging features, and if the patient has normal life expectancy. In patients "e35 years with an ITN detected on CT, MRI, or extrathyroidal ultrasound, the Committee r ecommends further evaluation with dedicated thyroid ultrasound if the nodule is "e1.5 cm and has no s uspicious imaging features, and if the patient has normal life expectancy. (ACR, 2014) Reviewed by: Ed Sepulveda MD on 09/21/2022 4:29 PM PST Approved by: Ed Sepulveda MD on 09/21/2022 4:29 PM PST Station ID: [id number]
== END 2022-09-21 14:54 | disposition home or self-care (01) ==
LOC: DI 14:53
PROVIDERS: ATTEND Internal Medicine
DX: R91.8 Other nonspecific abnormal finding of lung field (principal)